=== PATIENT | female | born 1955 | race Caucasian/White ===

== ENCOUNTER 2024-12-06 22:37 | Emergency (ER) | payer MEDICARE, SELFPAY ==
[2024-12-06 22:38] VITALS: BP 205/85; PULSE 83; RESP 18; TEMP 36.9; O2SAT 100; BMI 42.0
--- NOTE | 2024-12-06 23:00 | ED.VIS.LOWEX ---
HPI History of Present Illness HPI Narrative: Patient presents with left knee pain that became worse today. Patient states she has a history of chronic knee pain. Patient states it normally gets better with ibuprofen. Patient states she has been taking ibuprofen tonight with no improvement. Patient denies any trauma or injury. Patient describes her pain as stabbing. Patient denies any paresthesias or weakness. Patient states her pain is worse with any ambulation or movement. Chief Complaint: Lower Extremity Injury Informant: patient Onset/Context/Timing Onset: Today Context: Gradual Onset Timing: Continuous Quality of Pain: Stabbing Location: Left knee Worsened by: Ambulation, movement Relieved by: Nothing Associated Symptoms Associated Symptoms: Negative for Parasthesia, Weakness or Loss of Funtion PFSH PFSH Medical History no medical history no medical history Home Medications ?Medication ?Instructions ?Recorded ?Last Taken ?Type etodolac 300 mg capsule 300 mg PO BID #60 caps 11/30/19 Unknown Rx hydrocodone-acetaminophen 5-325mg 1 tab PO Q6H PRN PRN Pain 3 days 12/07/24 Unknown Rx 5mg-325mg #10 TABLETS Allergy/AdvReac Type Severity Reaction Status Date / Time prednisone Allergy Intermediate Itching Verified 12/06/24 22:40 latex Allergy Unknown Verified 12/06/24 22:40 Penicillins Allergy Unknown Verified 12/06/24 22:40 Sulfa (Sulfonamide Allergy Unknown Verified 12/06/24 22:40 Antibiotics) terfenadine (From Seldane) Allergy Unknown Verified 12/06/24 22:40 diphenhydramine (From AdvReac Intermediate Swelling Verified 12/06/24 22:40 Benadryl) tetanus toxoid, adsorbed AdvReac redness Verified 12/06/24 22:41 Family History no significant family his Surgical History (Updated 12/06/24 @ 23:[address] Gabe Chamorro DO) Hx of section Surgical History no surgical history Social History Smoking Status: Never smoker ROS ROS ED Constitutional Constitutional ED: Denies chills or fever(s) Eyes Eyes: Denies blurry vision or change in vision ENT ENT ED: Denies rhinorrhea or sore throat Cardiovascular Cardiovascular: Denies chest pain or palpitations Respiratory/Chest Respiratory/Chest: Denies cough or dyspnea Gastrointestinal Gastrointestinal: Reports nausea; Denies vomiting Genitourinary Genitourinary ED: Denies dysuria or hematuria Musculoskeletal Musculoskeletal: Denies back pain or neck pain Integumentary Denies abscess or rash Neurologic Neurologic: Denies headache(s) or weakness Allergic/Immunologic Allergic/Immunologic ED: Denies mouth swelling or urticaria EXAM Physical Exam Const Vital Signs: 12/06/24 22:38 Temperature 98.4 F Temperature Source Oral Pulse Rate 83 Respiratory Rate 18 Blood Pressure 205/85 H Blood Pressure Mean 125 Pulse Ox 100 Oxygen Delivery Method Room Air Positive well nourished and well developed Constitutional Narrative: BMI is 42.0 General Appearance ED: well developed and NAD HEENT Reports moist mucous membranes normocephalic and atraumatic Neck full ROM and supple Extremity Extremity Narrative: There is tenderness and edema over the medial aspect of the left knee. There is no obvious deformity. There is no ecchymosis. Range of motion is limited in all motions of the left knee secondary to pain. Strength is 5/5 bilaterally in the lower extremities. Extensor mechanism is intact. Sensation is intact to light touch in the lower extremities bilaterally. Pedal pulses are equal bilateral. Neuro oriented x3, CN's II-XII intact bilaterally, moves all extremities and no sensory deficits noted Sensorium / Orientation: alert Motor Exam: strength 5/5 throughout Psych mental status grossly normal MDM MDM MDM Narrative Medical decision making narrative: Differential diagnosis includes occult fracture, sprain, contusion, and degenerative arthritis. X-rays of the left knee will be obtained to assess for occult fracture and degenerative arthritis. Radiography Diagnostic Testing: Clinical Impression(s) from Imaging Studies Knee X-Ray 12/06/24 23:10 IMPRESSION: No evidence of acute fracture. Severe osteoarthrosis. Reading Location: [place] [id number] X-rays of the left knee were obtained. There are 4 views. On my independent interpretation, there is no acute fracture. There there are degenerative changes noted. Radiologist also interpreted the x-rays and agrees. Treatment and Re-Evaluation Narrative: Patient was given a dose of [place] here. Patient was feeling better on reevaluation. Patient was given a prescription for a short course of [place]. Patient was instructed to ice and elevate the left knee. Patient was instructed to follow-up with her primary care physician in 5 to 7 days. Patient was instructed to return if worse in any way. Patient understood and was agreeable with the plan. All questions were answered. Discharge Plan Triage Chief Complaint: Lower Extremity Injury ED Provider: Gabe Chamorro Dx/Rx/DC Orders Clinical Impression: Acute pain of left knee, Elevated blood pressure reading Instructions: ED Arthralgia, ED Chronic Pain Prescriptions: New hydrocodone-acetaminophen 5-325 mg tablet 1 tab PO Q6H PRN PRN (Reason: Pain) 3 Days Qty: 10 0RF No Action etodolac 300 mg capsule 300 mg PO BID Qty: 60 0RF Rx Instructions: Do not take with other NSAIDs Primary Care Provider: Rylee Guallpa,Out of Referrals: Rylee Guallpa,Out of [Primary Care Provider] - 5-7 Days Print Language: Mosotho Disposition Disposition: Home, Self Care
--- NOTE | 2024-12-06 23:10 | RAD_ITS ---
PROCEDURE: KNEE 4 OR MORE VIEWS 12/06/2024 REASON FOR EXAM: INJURY/PAIN TECHNIQUE: 4 view(s) of the left knee COMPARISON: None. FINDINGS: Bones: No evidence of acute fracture or dislocation. Joints: Asymmetric joint space narrowing most pronounced in the medial compartment. Effusion: No effusion. Soft tissues: Soft tissues are unremarkable. Other: None. RAD/Knee 4 or More Views IMPRESSION: No evidence of acute fracture. Severe osteoarthrosis. Reading Location: [place] [id number]
[2024-12-06] MEDS: HYDROcodone Bitartrate/Apap 5/325 Tablet PO (23:26)
[2024-12-07 00:24] VITALS: BP 205/85; PULSE 83; RESP 18; TEMP 36.9; O2SAT 100
== END 2024-12-07 00:27 | disposition home or self-care (01) ==
PROVIDERS: Emergency Provider Emergency Medicine; Visit Provider Emergency Medicine
DX: M25.562 Pain in left knee (principal); G89.29 Other chronic pain; R03.0 Elevated blood-pressure reading, without diagnosis of hypertension; R11.0 Nausea
CPT/HCPCS: 73564; 99282

== ENCOUNTER → 2025-06-09 | Outpatient (CLI) | payer MEDICARE, SELFPAY ==
--- OUTSIDE RECORDS SUMMARY | 2025-06-09 15:18 | XMS RPT_ITS | CCD ---
Author Organization [facility] Care Team Providers [employer] Name Role Phone Unavailable Primary Care Provider UnavailHERIBERTO Oreilly Attending Unavailable SALEEM, HALLIE Attending Unavailable KABA, HERIBERTO Attending Unavailable VINICIUS MURRY Attending Unavailable VINICIUS MURRY Referring Unavailable KABA, HERIBERTO Attending Unavailable Unavailable Primary Care Provider UnavailSAAD Oates Attending Unavailable SAAD FUENTES Referring Unavailable SAAD FUENTES Attending Unavailable LIONEL RAY Referring Unavailable [facility] Doctor, Out of Primary Care Provider Dr. Gabe Bajwa DO Emergency Provider Gabe Chamorro Attending Unavailable [facility] Doctor, Out of Primary Care Unavailable Robb Elizondo MD Unavailable [phone] NONE, NONE Unavailable Unavailable Allergies Allergy Classification Reported Allergen(s) Allergy Type Date of Onset Reaction(s) Facility (14 sources) diphenhydrAMINE Drug Allergy 11-30-19 [facility] (13 sources) Latex Allergy to substance 03-07-20 15 [facility] (14 sources) Penicillins Drug Allergy 03-07-20 15 [facility] (12 sources) Prednisone Allergy to substance 11-30-19 [facility] (14 sources) Sulfonamides (Antibiotic) Drug Intolerance 11-11-19 06 [facility] (12 sources) Terfenadine Allergy to substance 03-07-20 15 [facility] (2 sources) fexofenadine / Pseudoephedrine Drug Allergy 02-24-20 [facility] (2 sources) polyethylene glycol 300 Drug Allergy 02-24-20 [facility] (2 sources) prednisoLONE Drug Allergy 02-24-20 [facility] (2 sources) Tetanus vaccine Propensity to adverse reactions to drug 02-24-20 [facility] (2 sources) Wound Dressing Adhesive Propensity to adverse reactions to drug 02-24-20 [facility] (1 source) diphenhydrAMINE Drug Allergy 12-07-19 Swelling [facility] Comment on above: visual distortion (1 source) Latex Allergy to substance 12-07-19 Unknown [facility] (1 source) Penicillins Allergy to substance 12-07-19 Unknown [facility] (1 source) predniSONE Drug Allergy 12-07-19 Itching [facility] Comment on above: dizziness, itching (1 source) Sulfonamides (Antibiotic) Allergy to substance 12-07-19 Unknown [facility] (1 source) Terfenadine Drug Allergy 12-07-19 Unknown [facility] (1 source) tetanus toxoid vaccine, inactivated Drug Allergy 12-07-19 redness [facility] (1 source) diphenhydrAMINE Drug Allergy 12-07-19 [facility] (1 source) Latex Drug allergy (disorder) 12-07-19 [facility] (1 source) Penicillins Drug allergy (disorder) 12-07-19 [facility] (1 source) predniSONE Drug Allergy 12-07-19 [facility] (1 source) Sulfonamides (Antibiotic) Drug allergy (disorder) 12-07-19 [facility] (1 source) Terfenadine Drug Allergy 12-07-19 [facility] (1 source) tetanus toxoid, adsorbed Drug allergy (disorder) 12-07-19 [facility] (1 source) Bee/Wasp/Ant venom Allergy to substance (disorder) 05-25-20 [facility] (1 source) diphenhydrAMINE Drug Allergy 05-25-20 Hallucinations [facility] (1 source) Penicillin V Drug Allergy 05-25-20 [facility] (1 source) sulfADIAZINE Drug Allergy 05-25-20 [facility] (1 source) tetanus toxoid vaccine, inactivated Drug Allergy 05-25-20 [facility] (1 source) SYNVISC-ONE Food allergy (disorder) 05-25-20 [facility] (1 source) STEROIDS AND PREDNISONE Food allergy (disorder) 05-25-20 [facility] Medications Current Medications Medication Drug Class(es) Dates Sig (Normalized) Sig (Original) acetaminophen 325 mg / HYDROcodone bitartrate 5 mg oral tablet (3 sources) Opioid Agonist Start: 12-07-2024 take 1 tablet by mouth every six hours as needed for pain Hydrocodone-Aceta minophen 5-325 mg tablet Active 1 {tbl} PO EVERY 6 HOURS NEEDED as needed for Pain 10 3 December 07, 2024 Start: 03-06-2015 End: 11-30-2019 Hydrocodone-Acetaminophen 1 TABLET tablet Discontinued 1 - 2 {tbl} PO EVERY 4 HOURS NEEDED as needed for Pain March 06, 2015 12:00am November 30, 2019 8:08am take 1 tablet by jeff th every six hours as needed for pain hydrocodone 5 mg-acetaminophen 325 mg tablet TAKE 1 TABLET BY MOUTH EVERY 6 HOURS NEEDED FOR PAIN FOR 3 DAYS active Hannah Mccoy [facility] diclofenac sodium 0.01 mg/mg topical gel (5 sources) Nonsteroidal Anti-inflammatory Drug Start: 08-31-2023 Diclofenac Sodium (Voltaren) 1 % gel Indications: Primary osteoarthritis of left knee Apply 2 g topically in the morning and 2 g at noon and 2 g in the evening and 2 g before bedtime. 100 g 2 08/31/2023 Active etodolac 300 mg oral capsule (1 source) Nonsteroidal Anti-inflammatory Drug Start: 11-30-2019 take 1 capsule by mouth twice daily Etodolac 300 mg capsule Active 300 mg PO TWICE A DAY 60 November 30, 2019 12:00am Do not take with other NSAIDs ibuprofen 200 mg oral tablet (3 sources) Nonsteroidal Anti-inflammatory Drug take 4 tablets by mouth three times daily as needed for pain ibuprofen 200 mg tablet 4 tablet by mouth three times a day as needed for pain active Hannah Mccoy [employer] [facility] take 1 tablet by jeff th every six hours as needed Ibuprofen 400 MG tablet Take 1 tablet by mouth every 6 hours as needed for Mild Pain. Active Completed/Discontinued Medications Medication Drug Class(es) Dates Sig (Normalized) Sig (Original) acyclovir 800 mg oral tablet (1 source) Herpesvirus Nucleoside Analog DNA Polymerase Inhibitor, Herpes Simplex Virus Nucleoside Analog DNA Polymerase Inhibitor, Herpes Zoster Virus Nucleoside Analog DNA Polymerase Inhibitor Start: 03-07-2015 End: 11-30-2019 take 1 tablet by mouth five times daily Acyclovir 800 MG tablet Discontinued 800 mg PO 5 TIMES DAILY March 07, 2015 12:00am November 30, 2019 8:08am 6 ml hylan g-f 20 8 mg/ml prefilled syringe (2 sources) Start: 08-26-2023 End: 08-26-2023 hylan (Synvisc-One) injection 48 mg naproxen 500 mg oral tablet (1 source) Nonsteroidal Anti-inflammatory Drug Start: 03-06-2015 End: 11-30-2019 take 1 tablet by mouth twice daily Naproxen 500 MG tablet Discontinued 500 mg PO TWICE A DAY March 06, 2015 12:00am November 30, 2019 8:08am Problems Active Problems Problem Classification Problem Date Documented Date Episodic/Chronic Menstrual disorders (5 sources) Excessive and frequent menstruation; Translations: [Excessive and frequent menstruation with regular cycle] Onset: 11-10-2005 08-31-2023 Chronic Osteoarthritis (13 sources) Osteoarthritis of left knee joint; Translations: [Unilateral primary osteoarthritis, left knee] Onset: 08-19-2023 08-19-2023 Chronic Other circulatory disease (1 source) Elevated blood pressure; Translations: [Elevated blood-pressure reading, without diagnosis of hypertension] 12-07-2024 Episodic Other female genital disorders (5 sources) Complex endometrial hyperplasia without atypia; Translations: [Benign endometrial hyperplasia] Onset: 11-10-2005 08-31-2023 Chronic Other non-traumatic joint disorders (12 sources) Pain in left knee; Translations: [Pain in joint, lower leg] Onset: 08-19-2023 05-19-2023 Episodic Past or Other Problems Problem Classification Problem Date Documented Da te Episodic/Chronic Other female genital disorders (5 sources) Hypertrophy of uterus; Translations: [Hypertrophy of uterus] Onset: 11-10-2005 08-31-2023 Episodic Results Test Name Value Interpretation Reference Range Facil ity Relevant diagnostic tests/la boratory data Narrativeon 05-25-2025 Fall risk assessment no [employer] Work Phone: MEDS REVIEW Documentation of current medications (procedure) [employer] Work Phone: MEDS REVIEWD Medications reviewed with changes [employer] Work Phone: Emergency Department Summary on 12-06-2024 Emergency Department Summary [facility] Medical Records Department [address] [place] [address] Emergency Department Summary 12/06/24 MR#: [id number] Acct: [id number] Name: BUSHRA SCOTT Rep #: [id number] : 1955 68 From: Gabe Chamorro DO PCP: OUT OF TOWN DOCTOR Status:DEP ER Location: ED HPI History of Present Illness HPI Narrative: Patient presents with left knee pain that became worse today. Patient states she has a history of chronic knee pain. Patient states it normally gets better with ibuprofen. Patient states she has been taking ibuprofen tonight with no improvement. Patient denies any trauma or injury. Patient describes her pain as stabbing. Patient denies any paresthesias or weakness. Patient states her pain is worse with any ambulation or movement. Chief Complaint: Lower Extremity Injury Informant: patient Onset/Context/Timing Onset: Today Context: Gradual Onset Timing: Continuous Quality of Pain: Stabbing Location: Left knee Worsened by: Ambulation, movement Relieved by: Nothing Associated Symptoms Associated Symptoms: Negative for Parasthesia, Weakness or Loss of Funtion PFSH PFSH Medical History no medical history no medical history Home Medications ???Medication ???Instructions ???Recorded ???Last Taken ???Type etodolac 300 mg capsule 300 mg PO BID #60 caps 11/30/19 Un known Rx hydrocodone-acetaminop hen 5-325mg 1 tab PO Q6H PRN PRN Pain 3 days 12/07/24 Unknown Rx 5mg-325mg #10 TABLETS Allergy/AdvReac Type Severity Reaction Status Date / Time prednisone Allergy Intermediate Itching Verified 12/06/24 22:40 latex Allergy Unknown Verified 12/06/24 22:40 Penicillins Allergy Unknown Verified 12/06/24 22:40 Sulfa (Sulfonamide Allergy Unknown Verified 12/06/24 22:40 Antibiotics) terfenadine (From Seldane) Allergy Unknown Verified 12/06/24 22:40 diphenhydramine (From AdvReac Intermediate Swelling Verified 12/06/24 22:40 Benadryl) tetanus toxoid, adsorbed AdvReac redness Verified 12/06/24 22:41 Family History no significant family his Surgical History (Updated 12/06/24 @ 23:[address] Gabe Chamorro DO) Hx of section Surgical History no surgical history Social History Smoking Status: Never smoker ROS ROS ED Constitutional Constitutional ED: Denies chills or fever(s) Eyes Eyes: Denies blurry vision or change in vision ENT ENT ED: Denies rhinorrhea or sore throat Cardiovascular Cardiovascular: Denies chest pain or palpitations Respiratory/Chest Respiratory/Chest: Denies cough or dyspnea Gastrointestinal Gastrointestinal: Reports nausea; Denies vomiting Genitourinary Genitourinary ED: Denies dysuria or hematuria Musculoskeletal Musculoskeletal: Denies back pain or neck pain Integumentary Denies abscess or rash Neurologic Neurologic: Denies headache(s) or weakness Allergic/Immunologic Allergic/Immunologic ED: Denies mouth swelling or urticaria EXAM Physical Exam Const Vital Signs: 12/06/24 22:38 Temperature 98.4 F Temperature Source Oral Pulse Rate 83 Respiratory Rate 18 Blood Pressure 205/85 H Blood Pressure Mean 125 Pulse Ox 100 Oxygen Delivery Method Room Air Positive well nourished and well developed Constitutional Narrative: BMI is 42.0 General Appearance ED: well developed and NAD HEENT Reports moist mucous membranes normocephalic and atraumatic Neck full ROM and supple Extremity Extremity Narrative: There is tenderness and edema over the medial aspect of the left knee. There is no obvious deformity. There is no ecchymosis. Range of motion is limited in all motions of the left knee secondary to pain. Strength is 5/5 bilaterally in the lower extremities. Extensor mechanism is intact. Sensation is intact to light touch in the lower extremities bilaterally. Pedal pulses are equal bilateral. Neuro oriented x3, CN's II-XII intact bilaterally, moves all extremities and no sensory deficits noted Sensorium / Orientation: alert Motor Exam: strength 5/5 throughout Psych mental status grossly normal MDM MDM MDM Narrative Medical decision making narrative: Differential diagnosis includes occult fracture, sprain, contusion, and degenerative arthritis. X- rays of the left knee will be obtained to assess for occult fracture and degenerative arthritis. Radiography Diagnostic Testing: Clinical Impression(s) from Imaging Studies Knee X-Ray 12/06/24 23:10 IMPRESSION: No evidence of acute fracture. Severe osteoarthrosis. Reading Location: [place] [address] X-rays of the left knee were obtained. There are 4 views. On my independent interpretation, there is no acute fracture. There t (more content not included)... Normal [facility] Knee 4 or More Viewson 12-06 Knee 4 or More Views [facility] Imaging Services [address] [place] [address] Knee 4 or More Views MR#: [id number] Acct: [id number] Name: BUSHRA SCOTT Rep #: [id number] : 1955 F 68 From: Marquise Hanson MD PCP: OUT OF TOWN DOCTOR Status: REG ER Study: Knee 4 or More Views Date of Exam: 12/06/24 Exam# [id number] Ordering Dr: Gabe Chamorro DO PROCEDURE: KNEE 4 OR MORE VIEWS 12/06/2024 REASON FOR EXAM: INJURY/PAIN TECHNIQUE: 4 view(s) of the left knee COMPARISON: None. FINDINGS: Bones: No evidence of acute fracture or dislocation. Joints: Asymmetric joint space narrowing most pronounced in the medial compartment. Effusion: No effusion. Soft tissues: Soft tissues are unremarkable. Other: None. RAD/Knee 4 or More Views IMPRESSION: No evidence of acute fracture. Severe osteoarthrosis. Reading Location: [id number] CC: Dr. Gabe Chamorro DO Field Health Officer: Signed [facility] 3601-27-2024 36 MITCHELL uploaded to [employer] and was sent to [facility]. They called in and asked if we can just fax since she has not gotten in mail. [phone] Faxed OV notes. [facility] 3612-18-2023 36 I mailed out the MITCHELL to the patient. [facility] 3612-17-2023 36 Can you help with this? [facility] 36 Pearl called stati ng the patient told them she's been calling and leaving voicemails for the office about getting her records. Said someone told her there was a fee. [facility] in [place]. Called patient to advise we need a signed release. She asked we mail it to her. Can you mail a MITCHELL form to the patient's home? Normal [facility] 36on 09-25-2023 36 I called the patient and listened to her concerns. She stated that she continues to have swelling and pain within the knee and she also indicated that she has a mass in the inside part of her knee since she received the injection. She reiterated that she is allergic to all kinds of things and that no one looked at her allergy list. She uses a wrap to help minimize the swelling, but she states that the swelling comes back after she takes the wrap off. She indicated that her knee is twice the size of the other knee. She expressed that she is at a loss as far as what to do now. I offered her an appointment with one of our [facility] providers (Dr. Rogers) t osee if there are any other non-operative treatment options for her knee since she isnt a surgical candidate. She advised that she will give it another month and if it doesn't get any better than she may call for an appointment. Normal [facility] 36on 08-31-2023 36 Noted Normal [facility] 36 Name of caller: Bushra Contact phone number: [phone] Relationship to Patient: Self Provider: [place] Practice: Ortho Chief Complaint/Reason for Call: Pt called in stating she will not be using the Voltaren Gel Dr Kaba recommended. Pt states there are way too many side effects and pt will not touch it. Pt with all that is listed that could happen she is scared. FYI Best time of day caller can be reached: Any Patient advised that office/PCP has 24-48 business hours to return their call: N/A Normal [facility] Office Visiton 08-31-2023 Follow-up visit [id number] Louise Scott 1955 F Date Provider Department Center 08/31/2023 [id number], [facility] OR None No family history on file Level of Service:34943 CT OFFICE/OUTPATIENT ESTABLISHED LOW MDM 20 MIN Reason for Visit and Comments: Follow-up [948162] - Left knee pain Normal [facility] PATINSon 08-31-2023 PATINS HOW TO USE VOLTAREN GEL: Voltaren dosing card Read the label and use the enclosed dosing card. Do not use on more than two body areas at the same time. Dosage Using the dosing card, apply the following amounts: Small joint areas (hand, wrist, elbow, ankle): 2.25 inches Larger joint areas (shoulder, knee, foot): 4.5 inches Voltaren being applied to the knee instuctions: Rub gently into affected area. It is intended to be used 4 times a day everyday for up to 21 days. With 6-eqkkq-r-day use, you may start to feel relief within a few days. DRUG INFORMATION: Diclofenac topical Pronunciation: dye KLOE fen ak JOSH ik al Brand: DST Plus Rafael, Pennsaid, Solaraze, Voltaren Topical What is the most important information I should know about diclofenac topical? Diclofenac can increase your risk of fatal heart attack or stroke, especially if you use it intermediate or take high doses, or if you have heart disease. Do not use this medicine just before or after heart bypass surgery (coronary artery bypass graft, or CABG). Diclofenac may also cause stomach or intestinal bleeding, which can be fatal. These conditions can occur without warning while you are using diclofenac, especially in older adults. What is diclofenac topical? Diclofenac is a nonsteroidal anti-inflammatory drug (NSAID). Diclofenac topical (for the skin) is used to treat joint pain caused by osteoarthritis. Pennsaid is for use on the knees. Voltaren Topical is for use on the hands, wrists, elbows, knees, ankles, or feet. This medicine may not be effective in treating arthritis pain elsewhere in the body. Solaraze is used to treat warty overgrowths of skin (actinic keratoses) on sun-exposed areas of the body. Diclofenac topical may also be used for purposes not listed in this medication guide. What should I discuss with my healthcare provider before using diclofenac topical? Diclofenac can increase your risk of fatal heart attack or stroke, especially if you use it intermediate or take high doses, or if you have heart disease. Even people without heart disease or risk factors could have a stroke or heart attack while taking this medicine. Do not use this medicine just before or after heart bypass surgery (coronary artery bypass graft, or CABG). Diclofenac may also cause stomach or intestinal bleeding, which can be fatal. These conditions can occur without warning while you are using diclofenac, especially in older adults. You should not use this medicine if you are allergic to diclofenac (Voltaren, Cataflam, Flector, and others), or if you have ever had an asthma attack or severe allergic reaction after taking aspirin or an NSAID. Diclofenac topical is not approved for use by anyone younger than 18 years old. Tell your doctor if you have ever had: heart disease, high blood pressure, high cholesterol, diabetes, or if you smoke; a heart attack, stroke, or blood clot; stomach ulcers, bleeding in your stomach or intestines; asthma; liver or kidney disease; fluid retention. Diclofenac can affect ovulation and it may be harder to get while you are using this medicine. However, using diclofenac topical during the last 3 months of may harm the unborn baby. Tell your doctor if you are or plan to become . It may not be safe to breast-feed while using this medicine. Ask your doctor about any risk. How should I use diclofenac topical? Follow all directions on your prescription label and read all medication guides. Use the lowest dose that is effective in treating your condition. Do not take by mouth. Topical medicine is for use only on the skin. Rinse with water if this medicine gets in your eyes or mouth. Read and carefully follow any Instructions for Use provided with your medicine. Ask your doctor or pharmacist if you do not understand these instructions. Do not apply diclofenac topical to an open skin wound, or on areas of infection, rash, burn, or peeling skin. Store at room temperature away from moisture and heat. Do not freeze. Store Pennsaid in an upright position. What happens if I miss a dose? Apply the medicine as soon as you can, but skip the missed dose if it is almost time for your next dose. Do not apply two doses at one time. What happens if I overdose? Seek emergency medical attention or call the Poison Help line at . What should I avoid while using diclofenac topical? Ask a doctor or pharmacist before using other medicines for pain, fever, swelling, or cold/flu symptoms. They may contain ingredients similar to diclofenac (such as aspirin, ibuprofen, ketoprofen, or naproxen). Avoid drinking alcohol. It may increase your risk of stomach bleeding. Avoid exposing treated skin to heat, sunlight, or tanning beds. Heat can increase the amount of diclofenac you absorb through your skin. Avoid getting this medicine in your eyes. If contact does occur, (more content not included)... Normal [facility] Progress Noteon 08-31-2023 Progress Note [facility] [address] [place] [address] Dept: [phone] Dept 08/31/2023 Chief Complaint Patient presents with Follow-up Left knee pain Subjective: Bushra is a 67 y.o. female who presents for repeat evaluation of the left knee. At the last visit we initiated non-operative treatment consisting of... ~ Synvisc One injection on 08/26/23 ~ Crutches ~ NSAIDs ~ Saw Hallie on 08/28/23 - labs ordered - patient states she has had no improvement over the last 3 days The patient reports the treatment has not provided significant prolonged relief. Review of Systems Constitutional: Negative for chills and fever. Respiratory: Negative for cough and shortness of breath. Cardiovascular: Negative for claudication and leg swelling. Musculoskeletal: Positive for joint line pain. Negative for falls. Skin: Negative for itching and rash. Neurological: Negative for sensory change and focal weakness She also added at the end of the visit that she did get bite by a racoon on her right leg about 3 weeks ago. That wound appears completely healed and so concerning symptoms present at this time. She is refusing to get the rabies vaccine because she is scared of an reaction. No past medical history on file. No past surgical history on file. Social History Socioeconomic History Marital status: Single Spouse name: Not on file Number of children: Not on file Years of education: Not on file Highest education level: Not on file Occupational History Not on file Tobacco Use Smoking status: Never Smokeless tobacco: Never Substance and Sexual Activity Alcohol use: Not on file Drug use: Not on file Sexual activity: Not on file Other Topics Concern Not on file Social History Narrative Not on file Social Determinants of Health Financial Resource Strain: Not on file Food Insecurity: Not on file Transportation Needs: Not on file Physical Activity: Not on file Stress: Not on file Social Connections: Not on file Intimate Partner Violence: Not on file Housing Stability: Not on file No family history on file. Allergies Allergen Reactions Diphenhydramine Other reaction(s): Swelling Prednisone Other reaction(s): Itching Latex Other reaction(s): Unknown Penicillins Other reaction(s): Unknown Sulfa Antibiotics Terfenadine Other reaction(s): Unknown Objective: Ht 5' 1 (1.549 m) Wt 210 lb (95.3 kg) BMI 39.68 kg/m? Pt is a WD/WN female in no acute distress. She appears her stated age. Mood and affect are normal. She is A&O x 3. Gait: antalgic with crutches. LEFT KNEE: Inspection shows skin is warm, dry and intact. There are no obvious scars or previous incisions.. Alignment is mild varus. ROM shows extension is 15, flexion 90. The knee is stable to varus/valgus stress (<6 degrees) and is correctable. Additional findings include medial joint line tenderness, no effusion and no erythema. Diffuse knee swelling noted. Anterior, posterior drawer negative. +PF/DF/EHL. SILT distally. DP/PT palpable. Straight leg raise negative for inciting radicular symptoms. Bilateral hip range of motion is not painful. Lab Results: RELEVANT LABS: Component Ref Range & Units 3 d ago SED RATE BY MODIFIED WESTERGREN < OR = 30 mm/h 6 Radiology Findings: Previous images in our system reviewed again today. XRAYS: Indication: Left knee pain. Exam Ordered: Radiographs of the knee include a standing anteroposterior view, a standing posteroanterior view, a lateral view in flexion, and a sunrise view. Details of Examination: Exam shows evidence of significant joint space narrowing (bone on bone) particularly in the medial compartment, significant peripheral osteophyte formation, and subchondral sclerosis; all consistent with end-stage degenerative arthritis of the knee. No other significant findings are noted. Impression: Degenerative Arthritis, left knee Assessment 1. Primary osteoarthritis of left knee Plan The above findings were discussed with patient length. We discussed the options of conservative versus possible surgical management of their knee. At this point considering the patient's level of activity, pain, and radiographic findings, I recommended continued conservative management. This treatment will consist of... ~ Activity modification ~ NSAID's (OTC preferred) - The risks and benefits of NSAID medications were discussed. NSAID's can have potential renal/cardiac/gastric side effects. ~ Topical Voltaren ~ ESR normal, low concern for infection. The risks, benefits, and alternatives to all of the treatment options were thoroughly explained. Patient will call us with any questions or concerns regarding this plan or if any significant issues arise. Follow-up prn, discussed process of surgery today. She wants to hold off if possible. We discussed possible [place] (more content not included)... Normal [facility] 36on 08-28-2023 36 Hallie, I had a pseudosepsis reaction to Synvisc a couple weeks ago, I just gave her a Dosepack and she got better. For her she is allergic to steroids so we don't have many options for her... Thank you for seeing her though much appreciated. Normal [facility] 36 FYI. They put her on the schedule to see Hallie this morning. [facility] 36 Nurse Triage: Situation: Patient called orthopedic nurse triage line and spoke with Irina Archer RN regarding increased swelling in left knee s/p gel injection on 08/26/23, also inability to walk more than 3 steps without crutches. States she has multiple allergies. Background: Bushra is approximately 2 day(s) s/p left knee gel injection with Dr. Kaba Assessment: Bushra complains of new symptoms to include increased swelling to injection site, inside portion of left knee, behind knee and partially down leg Currently pain is present, but that it is a different pain than before injection Patient states she is taking ibuprofen, ice and elevating. Bushra denies numbness and tingling States when she got injection, she was unable to walk right after and was taken to car in a w/c Capillary refill: brisk Erythema: No Swelling: Yes Effusion: No Calf pain or tenderness: No Recommendation: Telephone encounter sent to clinical staff provider to advise Patient cannot send in photo[place] Advised to have patient come into office to be seen by provider. Made appt with Hallie Monge at 11am per clinical staff [facility] 36 Questions about gel injection from 08/26/2023 visit for LT knee. She was wheeled out from office due to unable to walk after injection. Using crutches currently due to walking difficulty. Swelling under and inside of LT knee. Mars ball area where injection was placed on knee is present. Please return call to address if this is normal after gel injection, and what she can do for relief. Has tried icing. Normal [facility] Office Visiton 08-28-2023 Follow-up visit [id number] Louise Scott 1955 F Date Provider Department Center 08/28/2023 [id number], [facility] None No family history on file Level of Service:33414 CT OFFICE/OUTPATIENT ESTABLISHED LOW MDM 20 MIN Reason for Visit and Comments: Follow-up [[id number]] - Gel injection reaction LV: 08/19/23 Normal [facility] Progress Noteon 08-28-2023 Progress Note [facility] [address] [place] [address] [address] [facility] [address] Dept: [phone] Dept 08/28/2023 Chief Complaint Patient presents with Follow-up Gel injection reaction LV: 08/19/23 Subjective: Bushra Scott Patient presents today left knee pain and swelling following a gel injection on Thursday. The knee today is feeling worse. The patient reports increased swelling in medial side of left knee that continues down into her naranjo. The patient does report multiple allergies and is worried that she had a reaction to the injections. Non-operative treatment to date has consisted of: NSAIDS: Yes Tylenol: Yes Technical Editor Brace: No Cortisone injections: Yes Viscosupplementation: Yes Assistive Devices: crutches Therapy/HEP: No Narcotics: No Review of Systems Constitutional: Negative for activity change. HENT: Negative for congestion. Cardiovascular: Negative for leg swelling. Musculoskeletal: Positive for arthralgias, gait problem and joint swelling. Skin: Negative for wound. Neurological: Negative for weakness. No past medical history on file. No past surgical history on file. Social History Socioeconomic History Marital status: Single Spouse name: Not on file Number of children: Not on file Years of education: Not on file Highest education level: Not on file Occupational History Not on file Tobacco Use Smoking status: Never Smokeless tobacco: Never Substance and Sexual Activity Alcohol use: Not on file Drug use: Not on file Sexual activity: Not on file Other Topics Concern Not on file Social History Narrative Not on file Social Determinants of Health Financial Resource Strain: Not on file Food Insecurity: Not on file Transportation Needs: Not on file Physical Activity: Not on file Stress: Not on file Social Connections: Not on file Intimate Partner Violence: Not on file Housing Stability: Not on file No family history on file. Allergies Allergen Reactions Diphenhydramine Other reaction(s): Swelling Prednisone Other reaction(s): Itching Latex Other reaction(s): Unknown Penicillins Other reaction(s): Unknown Sulfa Antibiotics Terfenadine Other reaction(s): Unknown Objective: Ht 5' 1 (1.549 m) Wt 210 lb (95.3 kg) BMI 39.68 kg/m? Pt is a WD/WN female in no acute distress but complaining of severe pain with activity. She appears her stated age. Mood and affect are normal. She is A&O x 3. Gait: antalgic. LEFT KNEE: Inspection shows skin is warm, dry and intact. There are no obvious scars or previous incisions. Alignment is neutral. There is an extensive amount of medial swelling extending into the thigh and down the naranjo. No redness or warmth present. ROM shows extension is 0, flexion 120. The knee is stable to varus/valgus stress (<6 degrees). +PF/DF/EHL. SILT distally. DP/PT palpable. Straight leg raise negative for inciting radicular symptoms. XRAYS: No new imaging since last visit Assessment 1. Acute pain of left knee 2. Primary osteoarthritis of left knee 3. Arthritis of left knee Bushra is here today complaining of left knee pain following a gel injection on Thursday. Her and her report that the pain started instantly during the injections and she left thinking it would get better. Soon after going home she start to get medial knee swelling along with the pain when up with activity. Zero pain is relaxing in the recliner. She denies any falls or injuries since the visit. Denies fever, chills, redness or warmth in the knee. After I reviewed with her that I feel she is having an inflammatory response to the injection she proceeded to tell me that she has several allergies that are not listed in her chart (example: after her tetanus shot her entire arm became huge and swollen and almost killed her). I discussed with her that it does not present like an infection but that I am going to get an ESR/CRP to rule out. Plan was to get her a medrol dose pac to help with the swelling but she also has a severe allergy to steroids and declined. She can only take Ibuprofen so I instructed her to continue that scheduled for the next 5 days, along with aggressive ice and elevation. I applied an mary wrap from toes to thigh to aid in the edema but instructed her to remove it a minium of 3 times a day to assess her leg. She can continue with WBAT and will follow up with Dr. Kaba on Thursday. We reviewed signs and symptoms of infection. The risks, benefits, and alternatives to all of the treatment options were thoroughly explained. Patient will call us with any questions or concerns regarding this plan or if any significant issues arise she is to report to the ED. This treatment will consist of... ~ Followup with Dr. Kaba on 08/31/23 *She also added at the end of the visit that she did get bite by a racoon on her right leg a (more content not included)... Normal [facility] Office Visiton 08-26-2023 Follow-up visit [id number] MiltonLouise stovall 1955 F Date Provider Department Center 08/26/2023 [id number], RYAN [facility]T [facility] None No family history on file Level of Service:22886 CT OFFICE/OUTPT VISIT,PROCEDURE ONLY Reason for Visit and Comments: Follow-up [[id number]] - Fu: Left knee synvisc one injection. Normal [facility] Progress Noteon 08-26-2023 Progress Note [facility] [address] [place] [address] Dept: [phone] Dept 08/26/2023 Chief Complaint Patient presents with Follow-up Fu: Left knee synvisc one injection. Subjective: Bushra is a 67 y.o. female who presents for repeat evaluation of the left knee. At the last visit we initiated non-operative treatment consisting of... ~ Activity modification ~ NSAID's (OTC preferred) - The risks and benefits of NSAID medications were discussed. NSAID's can have potential renal/cardiac/gastric side effects. ~ Tylenol ~ Physical therapy (home exercise program provided) ~ Submitting to insurance for gel injection. ~ Patient does not want surgery due [place] which she would like to continue. ~ Left knee brace, patient has OTC brace already Pt here today for Left Knee Synvisc one gel injection. Review of Systems Constitutional: Negative for activity change. HENT: Negative for congestion. Cardiovascular: Negative for leg swelling. Musculoskeletal: Positive for arthralgias, gait problem and joint swelling. Skin: Negative for wound. Neurological: Negative for weakness. History reviewed. No pertinent past medical history. History reviewed. No pertinent surgical history. Social History Socioeconomic History Marital status: Single Spouse name: Not on file Number of children: Not on file Years of education: Not on file Highest education level: Not on file Occupational History Not on file Tobacco Use Smoking status: Never Smokeless tobacco: Never Substance and Sexual Activity Alcohol use: Not on file Drug use: Not on file Sexual activity: Not on file Other Topics Concern Not on file Social History Narrative Not on file Social Determinants of Health Financial Resource Strain: Not on file Food Insecurity: Not on file Transportation Needs: Not on file Physical Activity: Not on file Stress: Not on file Social Connections: Not on file Intimate Partner Violence: Not on file Housing Stability: Not on file No family history on file. Allergies Allergen Reactions Diphenhydramine Other reaction(s): Swelling Prednisone Other reaction(s): Itching Latex Other reaction(s): Unknown Penicillins Other reaction(s): Unknown Sulfa Antibiotics Terfenadine Other reaction(s): Unknown Objective: Ht 5' 1 (1.549 m) Wt 210 lb (95.3 kg) BMI 39.68 kg/m? Pt is a WD/WN female in no acute distress. She appears her stated age. Mood and affect are normal. She is A&O x 3. Gait: antalgic. RIGHT KNEE: Inspection shows skin is warm, dry and intact. There are no obvious scars or previous incisions.. Alignment is neutral. ROM shows extension is 0, flexion 125. The knee is stable to varus/valgus stress (<6 degrees) and is not correctable. Additional findings include , no effusion, no erythema, and no tenderness. Anterior, posterior drawer negative. +PF/DF/EHL. SILT distally. DP/PT palpable. Straight leg raise negative for inciting radicular symptoms. LEFT KNEE: Inspection shows skin is warm, dry and intact. There are no obvious scars or previous incisions.. Alignment is significant varus. ROM shows extension is 0, flexion 120. The knee is stable to varus/valgus stress (<6 degrees) and is correctable. Additional findings include medial joint line tenderness, no effusion and no erythema. Anterior, posterior drawer negative. +PF/DF/EHL. SILT distally. DP/PT palpable. Straight leg raise negative for inciting radicular symptoms. Bilateral hip range of motion is not painful. Lab Results: RELEVANT LABS: NONE Radiology Findings: 04/08/23 images obtained by outside radiology department independently reviewed by myself today in office. XRAYS: Indication: Left knee pain. Exam Ordered: Radiographs of the knee include a standing anteroposterior view, a standing posteroanterior view, a lateral view in flexion, and a sunrise view. Details of Examination: Exam shows evidence of significant joint space narrowing (bone on bone) particularly in the medial compartment, significant peripheral osteophyte formation, and subchondral sclerosis; all consistent with end-stage degenerative arthritis of the knee. No other significant findings are noted. Impression: Degenerative Arthritis, left knee Assessment 1. Arthritis of left knee Plan The above findings were discussed with patient length. We discussed the options of conservative versus possible surgical management of their knee. At this point considering the patient's level of activity, pain, and radiographic findings, I recommended continued conservative management. This treatment will consist of... ~ Gel injection - Procedure(s) Note: After risks and benefits of visco/gel injection were reviewed with the patient, they elected to proceed. After a triple alcohol sterile preparation, a Synvisc one injection was given (more content not included)... Normal [facility] 36on 08-24-2023 36 I called and got the patient scheduled for the left knee Synvisc one injection . [facility] 36 Patient was seen in office 08/19/2023, patient said Dr. Kaba told her the gel injections would be in by Thursday of that week. She called to check status as she had not heard from anyone yet. Submitting to insurance for gel injection. [facility] Office Visiton 08-19-2023 Follow-up visit [id number] Louise Scott 1955 F Date Provider Department Center 08/19/2023 [id number], RYAN [facility] None No family history on file Level of Service:15475 CT OFFICE/OUTPATIENT NEW LOW MDM 30 MINUTES Reason for Visit and Comments: New Patient [542] - L knee pain Normal [facility] Progress Noteon 08-19-2023 Progress Note [facility] [address] [place] [address] Dept: [phone] Dept 08/19/2023 Chief Complaint Patient presents with New Patient L knee pain Subjective: Bushra is a 67 y.o. female who presents for evaluation of the left knee. Symptoms began gradually several years ago. She describes the symptoms as aching. The pain is medial. Symptoms improve with rest, ice, medication: Ibuprofen, Tylenol, biofreeze used and beneficial. The symptoms are exacerbated by stair climbing, walking on uneven ground . The knee has not given out or felt unstable. The patient can bend and straighten the knee fully and does not have mechanical symptoms (catching, locking). Able to walk 2-3 blocks and is able to use stairs. Overall, the patient feels as if this condition is moderately impacting their quality of life and ability to do activities of daily living. No associated radicular pain contributing nor any radiating hip pain. Previous Surgery: No Non-operative treatment to date has consisted of: NSAIDS: Yes Narcotics: No Therapy: None. Cortisone injections: No Viscosupplementation: No Assistive Devices: None Bracing: Yes Attempted Weight Loss: No Medications reviewed. Review of Systems Constitutional: Negative for activity change. HENT: Negative for congestion. Cardiovascular: Negative for leg swelling. Musculoskeletal: Positive for arthralgias, gait problem and joint swelling. Skin: Negative for wound. Neurological: Negative for weakness. History reviewed. No pertinent past medical history. History reviewed. No pertinent surgical history. Social History Socioeconomic History Marital status: Single Spouse name: Not on file Number of children: Not on file Years of education: Not on file Highest education level: Not on file Occupational History Not on file Tobacco Use Smoking status: Never Smokeless tobacco: Never Substance and Sexual Activity Alcohol use: Not on file Drug use: Not on file Sexual activity: Not on file Other Topics Concern Not on file Social History Narrative Not on file Social Determinants of Health Financial Resource Strain: Not on file Food Insecurity: Not on file Transportation Needs: Not on file Physical Activity: Not on file Stress: Not on file Social Connections: Not on file Intimate Partner Violence: Not on file Housing Stability: Not on file No family history on file. Allergies Allergen Reactions Diphenhydramine Other reaction(s): Swelling Prednisone Other reaction(s): Itching Latex Other reaction(s): Unknown Penicillins Other reaction(s): Unknown Sulfa Antibiotics Terfenadine Other reaction(s): Unknown Objective: Ht 5' 1 (1.549 m) Wt 210 lb (95.3 kg) BMI 39.68 kg/m? Pt is a WD/WN female in no acute distress. She appears her stated age. Mood and affect are normal. She is A&O x 3. Gait: antalgic. RIGHT KNEE: Inspection shows skin is warm, dry and intact. There are no obvious scars or previous incisions.. Alignment is neutral. ROM shows extension is 0, flexion 125. The knee is stable to varus/valgus stress (<6 degrees) and is not correctable. Additional findings include , no effusion, no erythema, and no tenderness. Anterior, posterior drawer negative. +PF/DF/EHL. SILT distally. DP/PT palpable. Straight leg raise negative for inciting radicular symptoms. LEFT KNEE: Inspection shows skin is warm, dry and intact. There are no obvious scars or previous incisions.. Alignment is significant varus. ROM shows extension is 0, flexion 120. The knee is stable to varus/valgus stress (<6 degrees) and is correctable. Additional findings include medial joint line tenderness, no effusion and no erythema. Anterior, posterior drawer negative. +PF/DF/EHL. SILT distally. DP/PT palpable. Straight leg raise negative for inciting radicular symptoms. Bilateral hip range of motion is not painful. Lab Results: RELEVANT LABS: NONE Radiology Findings: 04/08/23 images obtained by outside radiology department independently reviewed by myself today in office. XRAYS: Indication: Left knee pain. Exam Ordered: Radiographs of the knee include a standing anteroposterior view, a standing posteroanterior view, a lateral view in flexion, and a sunrise view. Details of Examination: Exam shows evidence of significant joint space narrowing (bone on bone) particularly in the medial compartment, significant peripheral osteophyte formation, and subchondral sclerosis; all consistent with end-stage degenerative arthritis of the knee. No other significant findings are noted. Impression: Degenerative Arthritis, left knee. Assessment 1. Primary osteoarthritis of left knee Plan The above findings were discussed with patient length. We discussed the options of conservative versus possible surgical management of their knee. At this point considering t (more content not included)... Normal [facility] Vital Signs Date Time Vital Sign Value Performing Clinician Facility 05-25-2025 14:10-0500 Body height 155 cm Robb Elizondo MD Work Phone: [facility] 05-25-2025 14:10-0500 Body height 154.94 cm Robb Elizondo MD Work Phone: [facility] 05-25-2025 14:10-0500 Body mass index (BMI) [Ratio] 43.05 kg/m2 Robb Elizondo MD Work Phone: [facility] 05-25-2025 14:10-0500 Body weight 103 kg Robb Elizondo MD Work Phone: [facility] 05-25-2025 14:10-0500 Body weight 102.97 kg Robb Elizondo MD Work Phone: [facility] 05-25-2025 14:10-0500 BP SITE #1 Robb Elizondo MD Work Phone: [facility] 05-25-2025 14:10-0500 Diastolic blood pressure 68 mm[Hg] Robb Elizondo MD Work Phone: [facility] 05-25-2025 14:10-0500 Heart rate 61 /min Robb Elizondo MD Work Phone: [facility] 05-25-2025 14:10-0500 HGHTCHNVIS Robb Elizondo MD Work Phone: [facility] 05-25-2025 14:10-0500 Systolic blood pressure 164 mm[Hg] Robb Elizondo MD Work Phone: [facility] 05-25-2025 14:10-0500 VITALSDONE Robb Elizondo MD Work Phone: [facility] 12-07-2024 00:24-0400 Body temperature 98.4 [degF] Out [facility] 12-07-2024 00:24-0400 Diastolic blood pressure 85 mm[Hg] Out [facility] 12-07-2024 00:24-0400 Heart rate 83 /min Out [facility] 12-07-2024 00:24-0400 Respiratory rate 18 /min Out [facility] 12-07-2024 00:24-0400 SaO2% (BldA) [Mass fraction] 100 % Out [facility] 12-07-2024 00:24-0400 Systolic blood pressure 205 mm[Hg] Out [facility] 12-06-2024 22:38-0400 Body height 154.94 cm Out [facility] 12-06-2024 22:38-0400 Body mass index (BMI) [Ratio] 42 kg/m2 Out [facility] 12-06-2024 22:38-0400 Body weight 100.92 kg Out [facility] 02-24-2024 13:31-0400 Body height 152.4 cm Saad Fuentes MD Work Phone: [facility] 02-24-2024 13:31-0400 Body mass index (BMI) [Ratio] 42.77 kg/m2 Saad Fuentes MD Work Phone: [facility] 02-24-2024 13:31-0400 Body weight 99.34 kg Saad Fuentes MD Work Phone: [facility] 08-31-2023 10:09-0500 Body height 154.9 cm Heriberto Kaba MD Work Phone: [facility] 08-31-2023 10:09-0500 Body mass index (BMI) [Ratio] 39.68 kg/m2 Heriberto Kaba MD Work Phone: [facility] [employer] 08-31-2023 10:09-0500 Body weight 95.25 kg Heriberto Kaba MD Work Phone: [facility] [employer] 08-28-2023 11:00-0500 Body height 154.9 cm [facility] Work Phone: [facility] [employer] 08-28-2023 11:00-0500 Body mass index (BMI) [Ratio] 39.68 kg/m2 [facility] Work Phone: [facility] [employer] 08-28-2023 11:00-0500 Body weight 95.25 kg [facility] Work Phone: [facility] [employer] 08-26-2023 14:52-0500 Body height 154.9 cm Heriberto Kaba MD Work Phone: [facility] [employer] 08-26-2023 14:52-0500 Body mass index (BMI) [Ratio] 39.68 kg/m2 Heriberto Kaba MD Work Phone: [facility] [employer] 08-26-2023 14:52-0500 Body weight 95.25 kg Heriberto Kaba MD Work Phone: [facility] [employer] 08-19-2023 09:19-0500 Body height 154.9 cm Heriberto Kaba MD Work Phone: [facility] [employer] 08-19-2023 09:19-0500 Body mass index (BMI) [Ratio] 39.68 kg/m2 Heriberto Kaba MD Work Phone: [facility] [employer] 08-19-2023 09:19-0500 Body weight 95.25 kg Heriberto Kaba MD Work Phone: [facility] [employer] Encounters Encounter Date Encounter Type Care Provider Facility Start: 05-25-2025 Visit out of hours Robb irizarry MD Work Phone: [employer] Work Phone: Start: 05-25-2025 In-person encounter Robb tidwell MD Work Phone: [facility] Work Phone: Start: 12-06-2024 End: 12-07-2024 Emergency department patient visit [facility] Doctor -Emergency Department Work Phone: Start: 02-24-2024 End: 02-24-2024 Office outpatient new 60 minutes Saad Fuentes MD Work Phone: [facility] Orthopedics Comment on above: Left knee pain, unsp ecified chronicity (Primary Dx) Start: 02-24-2024 End: 02-24-2024 Subsequent hospital visit by physician Saad Fuentes MD Work Phone: [facility] Radiology Start: 02-24-2024 ambulatory SAAD FUENTES [facility] Start: 12-17-2023 End: 12-17-2023 Telephone encounter Heriberto Kaba MD Work Phone: [facility] Comment on above: records form Start: 08-31-2023 Telephone encounter Heriberto Kaba MD Work Phone: [facility] Clinical Communication Comment on above: medication Start: 08-31-2023 End: 08-31-2023 Office outpatient visit 15 minutes Heriberto Kaba MD Work Phone: [facility] Comment on above: Primary osteoarthrit is of left knee (Primary Dx) Start: 08-31-2023 End: 08-31-2023 ambulatory HERIBERTO KABA [facility] Start: 08-28-2023 Telephone encounter Heriberto Kaba MD Work Phone: [facility] Comment on above: Advice Only Start: 08-28-2023 End: 08-28-2023 ambulatory HALLIE [facility] Start: 08-28-2023 End: 08-28-2023 Office outpatient visit 15 minutes [facility] 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 Work Phone: [facility] Comment on above: Acute pain of left k nee (Primary Dx); Primary osteoarthritis of left knee; Arthritis of left knee Start: 08-26-2023 End: 08-26-2023 Patient encounter procedure Heriberto Kaba MD Work Phone: [facility] Comment on above: Arthritis of left kn ee Start: 08-26-2023 End: 08-26-2023 ambulatory [facility] Start: 08-19-2023 End: 08-19-2023 Office outpatient new 30 minutes Heriberto Kaba MD Work Phone: [facility] Comment on above: Primary osteoarthrit is of left knee Start: 08-19-2023 End: 08-19-2023 Subsequent hospital visit by physician Vinicius Murry PA-C Work Phone: [facility] Comment on above: Left knee pain, unsp ecified chronicity Start: 08-19-2023 End: 08-19-2023 ambulatory [facility] Start: 08-19-2023 End: 08-19-2023 [facility] Start: 05-19-2023 Orders Only Vinicius Murry PA-C Work Phone: [facility] Comment on above: Left knee pain, unsp ecified chronicity (Primary Dx) Procedures Date Procedure Procedure Detail Performing Clinician Start: 05-25-2025 Osteoarthritis symptoms&funcjal status asses Robb Elizondo MD Work Phone: Start: 05-25-2025 BMI documented as ab ove normal parameters - follow-up documented Robb Elizondo MD Work Phone: Start: 05-25-2025 Current tobacco non- user cad cap copd pv dm Robb Elizondo MD Work Phone: Start: 05-25-2025 Documentation of cur rent medications Robb Elizondo MD Work Phone: Start: 05-25-2025 Pain assessment docu mented as positive - follow-up documented Robb Elizondo MD Work Phone: Start: 05-25-2025 MOTORIZED COLD THERA PY COMBO UNIT Robb Elizondo MD Work Phone: Start: 05-25-2025 JF Escamilla/ JOSE Elizondo MD Work Phone: Start: 12-06-2024 X-ray of knee, four or more views Out Town Doctor Plan of Treatment Date Care Activity Detail Author Start: 12-07-2024 [facility] Start: 03-20-2024 Influenza vaccination [facility] Start: 08-31-2023 End: 08-31-2023 Patient encounter procedure 08/31/2023 10:15 AM EST Office Visit [facility] [address] [place] [address] Heriberto Kaba MD [address] [place] [address] [facility] Start: 08-28-2023 End: 08-28-2024 C reactive protein [Mass/volume] in Serum or Plasma C-reactive protein Lab Routine Primary osteoarthritis of left knee Arthritis of left knee Expected: 08/28/2023 (Approximate), Expires: 08/28/2024 [facility] Work Phone: Comment on above: Expected: 08/28/2023 (Approximate), Expires: 08/28/2024 Start: 08-28-2023 End: 08-28-2024 Erythrocyte sedimentation rate Sedimentation rate, automated Lab Routine Primary osteoarthritis of left knee Arthritis of left knee Expected: 08/28/2023 (Approximate), Expires: 08/28/2024 [facility] Comment on above: Expected: 08/28/2023 (Approximate), Expires: 08/28/2024 Start: 05-19-2023 End: 05-19-2024 XR Knee - left 1 or 2 Views XR knee 1 or 2 views left Imaging Routine Left knee pain, unspecified chronicity Expected: 05/19/2023, Expires: 05/19/2024 [facility] Comment on above: Expected: 05/19/2023 , Expires: 05/19/2024 Start: 05-19-2023 End: 05-19-2024 XR knees anteroposterior standing bilateral XR knees anteroposterior standing bilateral Imaging Routine Left knee pain, unspecified chronicity Expected: 05/19/2023, Expires: 05/19/2024 [facility] Work Phone: Comment on above: Expected: 05/19/2023 , Expires: 05/19/2024 Start: 03-20-2023 COVID-19 Vaccine ( season) COVID-19 Vaccine ( season) [facility] Start: 03-20-2023 Influenza vaccination Influenza Vacc ine (#1) [facility] Start: 2018 Pneumococcal vaccination PNEUM OCOCCAL VACCINE SERIES (1 of 1 - PCV) [facility] Start: 2018 Pneumococcal Vaccine : 65+ Years (1 - PCV) Pneumococcal Vaccine: 65+ Years (1 - PCV) [facility] Start: 2018 Pneumococcal Vaccine : 65+ Years (1 of 1 - PCV) Pneumococcal Vaccine: 65+ Years (1 of 1 - PCV) [facility] Start: 2013 RSV Immunization age d 60 or older (1 - 1-dose 60+ series) RSV Immunization aged 60 or older (1 - 1-dose 60+ series) [facility] Start: 2013 RSV VACCINE (1 - 1-d ose 60+ series) RSV VACCINE (1 - 1-dose 60+ series) [facility] Start: 12-31-2003 Zoster vaccine hzv l caty for subcutaneous use ZOSTER (SHINGLES) VACCINE (1 of 2) [facility] Start: 12-31-2003 Zoster Vaccines (1 of 2) Zoster Vacc jose juan (1 of 2) [facility] Start: 1998 Screening for malign ant neoplasm of colon COLORECTAL CANCER SCREENING DISCUSSION [facility] Start: 1993 Lipid panel LIPID SCREENING [facility] Start: 1993 Screening for malign ant neoplasm of breast [facility] Start: 1974 Screening for malign ant neoplasm of cervix CERVICAL CANCER SCREENING DISCUSSION [facility] Start: 1972 DTaP/Tdap/Td Vaccine s (1 - Tdap) DTaP/Tdap/Td Vaccines (1 - Tdap) [facility] Start: 12-31-1971 Diabetes mellitus screening Diabetes Screening [facility] Start: 12-31-1971 Hepatitis C screening Hepatitis C Sc reening [facility] Start: 1965 Depression Screening Depression Scre ening [facility] Start: 07-01-1954 COVID-19 Vaccine (#1) COVID-19 Vacci ne (#1) [facility] Start: 1955 Hepatitis C screening HEPATITI S C VIRUS SCREENING [employer] [facility] Start: 1955 Medicare Annual Well ness (AWV) Medicare Annual Wellness (AWV) [facility] Start: 1955 Screening for malign ant neoplasm of colon [facility] Start: 1955 Screening for osteoporosis [facility] Patient Education ED Arthralgia ED Chronic Pain [facility] Work Phone: Patient referral [facility] Work Phone: Radiography for bone length studies XR BONE LENGTH STUDY Imaging Routine Left knee pain, unspecified chronicity 02/24/2024 1:24 PM EDT [employer] Work Phone: End: 08-19-2023 XR Knee - left 1 or 2 Views XR knee 1 or 2 views left Imaging Routine Left knee pain, unspecified chronicity Once for 1 Occurrences starting 08/19/2023 until 08/19/2023 [facility] [employer] Comment on above: Once for 1 Occurrenc es starting 08/19/2023 until 08/19/2023 XR Knee - left 4 Views XR KNEE L EFT 4+ VIEWS Imaging Routine Left knee pain, unspecified chronicity 02/24/2024 1:24 PM EDT [employer] End: 08-19-2023 XR knees anteroposterior standing bilateral XR knees anteroposterior standing bilateral Imaging Routine Left knee pain, unspecified chronicity Once for 1 Occurrences starting 08/19/2023 until 08/19/2023 [facility] [employer] [facility] Work Phone: Comment on above: Once for 1 Occurrenc es starting 08/19/2023 until 08/19/2023 Payers Date Payer Category Payer Self-pay 2021 Medicare [id number] 2021 Medicare [id number] 1955 Unknown [id number] 1955 Unknown [id number] Unknown [id number] Unknown [id number] Social History Date Type Detail Facility Tobacco smoking stat us MTIS Tobacco smoking consumption unknown [facility] Start: 1955 Sex Assigned At Female [facility] Start: 05-19-2023 Gender identity Identifies as female gender (finding) [facility] Start: 05-19-2023 Sexual orientation Heterosexual (fin ding) [facility] Start: 08-19-2023 End: 05-25-2025 Tobacco smoking status MTIS Never smoked tobacco [facility] Start: 08-19-2023 End: 02-24-2024 Tobacco use and exposure Smokeless tobacco non-user [facility] Start: 08-19-2023 End: 02-24-2024 History of Social function [facility] Start: 08-19-2023 End: 05-25-2025 Tobacco use panel [facility] Start: 1955 Sex assigned at Not on file [employer] Mental Status Date Assessment Result Facility 05-25-2025 Cognitive Function [facility] [employer] Work Phone: Clinical Notes 08-19-2023 to 12-07-2024 Tracie Tirado - 02/24/2024 1:30 PM Guillermo Fuentes MD - 02/24/2024 1:30 PM EDTTelephone Encounter - Britni Rajput - 01/27/2024 11:24 AM EDTTelephone Encounter - Elisa Ewing - 08/31/2023 2:41 PM EST Note Date & Type Note Facility 12-07-2024 Radiology Diagnostic study note [facility] Imaging Services [address] [place] [address] Knee 4 or More Views MR#: [id number] Acct: [id number] Name: BUSHRA SCOTT Rep #: [id number] : 1955 F 68 From: William Hanson MD PCP: OUT OF TOWN DOCTOR Status: REG ER Study:Knee 4 or More Views Date of Exam: 12/06/24 Exam# [id number] Ordering Dr: Gabe Chamorro DO PROCEDURE: KNEE 4 OR MORE VIEWS 12/06/2024 REASON FOR EXAM: INJURY/PAIN TECHNIQUE: 4 view(s) of the left knee COMPARISON: None. FINDINGS: Bones: No evidence of acute fracture or dislocation. Joints: Asymmetric joint space narrowing most pronounced in the medial compartment. Effusion: No effusion. Soft tissues: Soft tissues are unremarkable. Other: None. RAD/Knee 4 or More Views IMPRESSION: No evidence of acute fracture. Severe osteoarthrosis. Reading Location: [id number] CC: Dr. 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 She had a twisting injury where she tore her meniscus 2 years ago. She states the knee has not gotten any better so she decided to try a Synvisc injection back in August. She is allergic to many steroids so she was to afraid to try an injection of that. She states the Synvisc injection felt like it went into the wrong place and has slid down her leg. She does have quite a bit of swelling on the left leg in comparison to the right. She wants to discuss all options today. Date: 02/24/2024 1:33 PM Patient: Bushra Scott MR#: [id number] : 1955 Age: 68 y.o. Referring Physician: Lionel Ray MD Insurance: Payor: MEDICARE / Plan: MEDICARE A AND B / Product Type: *No Product type* / Chief Complaint Patient presents with Left Knee - Pain There were no vitals taken for this visit. Pain 1. Are you having pain? 2. On a scale from 1-10: Recent Labs No results found for: CRP No results found for: SEDRATE No results found for: WBC, WBCCOUNT, WBCFETAL, HGB, HCT, PLATELET, MCV History No past medical history on file. No past surgical history on file. Family History: Her family history is not on file. Social History: Her has no history on file for tobacco use, alcohol use, and drug use. No outpatient medications prior to visit. No facility-administered medications prior to visit. Allergies: She has no allergies on file. HPI: Patient is here today for evaluation of left knee pain. Primary complaint is pain, impairment in the knee and a decreased quality of life secondary to her left knee pain. The pain radiates locally, not associated with numbness or tinging. She has a lot of instability with it. She has experienced locking, popping, catching and clicking. Patient is apprehensive of falling on a daily basis. The more she is on it, the more it hurts. She had an injury to the knee 2 years ago and tore her meniscus. She states the knee has not gotten any better so she decided to try a Synvisc injection back in August that did not seem to work for her current symptoms. She has been using crutches since August due to her knee pain. Patient is here today for evaluation and to determine treatment options. Her pain is a 8/10. PHYSICAL EXAM: This is an alert, oriented, and age-appropriate female. She is in no distress. Pleasant and cooperative. EXTREMITIES: The upper extremities have no gross deformities. Normal stability. Skin Intact. 5/5 motor. Intact sensation. Normal neurovascular status. Normal coordination. The lower extremities have no gross deformities. Normal stability. Skin Intact. 5/5 motor. Intact sensation. Normal neurovascular status. Normal coordination. Range of motion upon exam today is 12-115. Stable examination to varus and valgus stress. Crepitus throughout the arc of motion. Painful range of motion. Full motion of hip. No pain. No impingement. No instability. Contralateral leg has normal alignment. Full motion. No pain. No impingement. No instability. IMAGING: Plain film radiographs were reviewed. Long-standing films of mechanical axis that falls to the medial compartment of the left knee. Multiple views of the knee demonstrate severe arthritis of the knee with loss of joint space, subchondral sclerosis, osteophyte formation, and mfan-qk-ekeo contact. IMPRESSION: 1.) Severe symptomatic end-stage left knee arthritis 2.) Obesity, BMI of 43 PLAN: We have discussed in great detail the nature of the diagnosis, the natural history and expected progression which is likely worsening pain, instability with risks of falls, and additional joint wear and or bone loss. We have discussed the options for treatment including both conservative and operative treatments. We have discussed the risks, benefits, and alternatives to each treatment. Bushra is interested in surgical management in the form of a left total knee replacement. Bushra understands that the potential benefits are reduced pain, improved stability and improved function. Bushra also understands that the major limb and/or life threatening risks include, but are not limited to: bleeding, infection, neurovascular injury including foot drop or paralysis, dislocation, component failure, implant loosening, ligament or tendon disruption, fracture, stiffness, chronic pain, chronic disability, need for further surgery, blood clots in the extremities or lungs, stroke, heart attack, loss of limb, and ultimately loss of life. 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 Despite these risks, the patient would like to proceed with surgical planning. Today, we will initiate the pre-surgical process including nasal MRSA screening, scheduling an appointment for [facility] and the potential surgical date, and reviewing and signing the consent forms. We discussed the positives of losing weight with the recovery process. She is currently a 43 BMI and we discuss being 40 or below would be ideal. I have reviewed the findings of my clinical staff below and agree with their assessment. Vitals: 02/24/24 1331 Weight: 99.3 kg (219 lb) Height: 1.524 m (5') Pain Recent Labs No results found for: CRP No results found for: SEDRATE No results found for: WBC, WBCCOUNT, WBCFETAL, HGB, HCT, PLATELET, MCV Past Medical History: Diagnosis Date Anemia Arthritis Difficult intubation Past Surgical History: Procedure Laterality Date SECTION TONSILLECTOMY History reviewed. No pertinent family history. Social History Socioeconomic History Marital status: Single Tobacco Use Smoking status: Never Smokeless tobacco: Never Current Outpatient Medications: Ibuprofen 400 MG tablet, Take 1 tablet by mouth every 6 hours as needed for Mild Pain., Disp: , Rfl: Allergies Allergen Reactions Harsh Xtoxzx-Cjzmptrgxee-Iikbha Latex [Wound Dressing Adhesive] Antihistamine & Nasal Deconges [Fexofenadine-Pseudoephed Er] Benadryl [Diphenhydramine] Peg-8 Beeswax [Polyethylene Glycol] Penicillins Predicort [Prednisolone] Sulfa Antibiotics Tetanus Toxoids documented in this encounter [facility] 01-27-2024 Telephone encounter Note MITCHELL uploaded to [employer] and was sent to [facility] [facility]. They called in and asked if we can just fax since she has not gotten in mail. [phone] Faxed OV notes. [facility] 01-27-2024 Miscellaneous Notes MITCHELL uploaded to [employer] and was sent to [employer]. They called in and asked if we can just fax since she has not gotten in mail. [phone] Faxed OV notes. I mailed out the MITCHELL to the patient. Can you help with this? Pearl called stating the patient told them she's been calling and leaving voicemails for the office about getting her records. Said someone told her there was a fee. [facility] in [place]. Called patient to advise we need a signed release. She asked we mail it to her. Can you mail a MITCHELL form to the patient's home? documented in this encounter [facility] 12-18-2023 Telephone encounter Note I mailed out the MITCHELL to the patient. [facility] 12-18-2023 Miscellaneous Notes I mailed out the MITCHELL to the patient. Can you help with this? Pearl called stating the patient told them she's been calling and leaving voicemails for the office about getting her records. Said someone told her there was a fee. [facility] in [place]. Called patient to advise we need a signed release. She asked we mail it to her. Can you mail a MITCHELL form to the patient's home? documented in this encounter [facility] 12-17-2023 Telephone encounter Note Can you help with this? [facility] 12-17-2023 Miscellaneous Notes Can you help with this? Pearl called stating the patient told them she's been calling and leaving voicemails for the office about getting her records. Said someone told her there was a fee. [facility] in [place]. Called patient to advise we need a signed release. She asked we mail it to her. Can you mail a MITCHELL form to the patient's home? documented in this encounter [facility] 12-17-2023 Telephone encounter Note Pearl called stating the patient told them she's been calling and leaving voicemails for the office about getting her records. Said someone told her there was a fee. [facility] in [place]. Called patient to advise we need a signed release. She asked we mail it to her. Can you mail a MITCHELL form to the patient's home? [facility] 08-31-2023 Telephone encounter Note Noted [facility] 08-31-2023 Miscellaneous Notes Noted Name of caller: Bushra Contact phone number: [phone] Relationship to Patient: Self Provider: [place] Practice: Ortho Chief Complaint/Reason for Call: Pt called in stating she will not be using the Voltaren Gel Dr Kaba recommended. Pt states there are way too many side effects and pt will not touch it. Pt with all that is listed that could happen she is scared. FYI Best time of day caller can be reached: Any Patient advised that office/PCP has 24-48 business hours to return their call: N/A documented in this encounter [facility] 08-31-2023 Telephone encounter Note Name of caller: Bushra Contact phone number: [phone] Relationship to Patient: Self Provider: [place] Practice: Ortho Chief Complaint/Reason for Call: Pt called in stating she will not be using the Voltaren Gel Dr Kaba recommended. Pt states there are way too many side effects and pt will not touch it. Pt with all that is listed that could happen she is scared. FYI Best time of day caller can be reached: Any Patient advised that office/PCP has 24-48 business hours to return their call: N/A [facility] 08-31-2023 History of Presen t illness Narrative Images from the original note were not included. [facility] [address] [facility] [id number] Dept: [phone] Dept 08/31/2023 Chief Complaint Patient presents with Follow-up Left knee pain Subjective: Bushra is a 67 y.o. female who presents for repeat evaluation of the left knee. At the last visit we initiated non-operative treatment consisting of... ~ Synvisc One injection on 08/26/23 ~ Crutches ~ NSAIDs ~ Saw [place] on 08/28/23 - labs ordered - patient states she has had no improvement over the last 3 days The patient reports the treatment has not provided significant prolonged relief. Review of Systems Constitutional: Negative for chills and fever. Respiratory: Negative for cough and shortness of breath. Cardiovascular: Negative for claudication and leg swelling. Musculoskeletal: Positive for joint line pain. Negative for falls. Skin: Negative for itching and rash. Neurological: Negative for sensory change and focal weakness She also added at the end of the visit that she did get bite by a racoon on her right leg about 3 weeks ago. That wound appears completely healed and so concerning symptoms present at this time. She is refusing to get the rabies vaccine because she is scared of an reaction. No past medical history on file. No past surgical history on file. Social History Socioeconomic History Marital status: Single Spouse name: Not on file Number of children: Not on file Years of education: Not on file Highest education level: Not on file Occupational History Not on file Tobacco Use Smoking status: Never Smokeless tobacco: Never Substance and Sexual Activity Alcohol use: Not on file Drug use: Not on file Sexual activity: Not on file Other Topics Concern Not on file Social History Narrative Not on file Social Determinants of Health Financial Resource Strain: Not on file Food Insecurity: Not on file Transportation Needs: Not on file Physical Activity: Not on file Stress: Not on file Social Connections: Not on file Intimate Partner Violence: Not on file Housing Stability: Not on file No family history on file. Allergies Allergen Reactions Diphenhydramine Other reaction(s): Swelling Prednisone Other reaction(s): Itching Latex Other reaction(s): Unknown Penicillins Other reaction(s): Unknown Sulfa Antibiotics Terfenadine Other reaction(s): Unknown Objective: Ht 5' 1 (1.549 m) Wt 210 lb (95.3 kg) BMI 39.68 kg/m Pt is a WD/WN female in no acute distress. She appears her stated age. Mood and affect are normal. She is A&O x 3. Gait: antalgic with crutches. LEFT KNEE: Inspection shows skin is warm, dry and intact. There are no obvious scars or previous incisions.. Alignment is mild varus. ROM shows extension is 15, flexion 90. The knee is stable to varus/valgus stress (<6 degrees) and is correctable. Additional findings include medial joint line tenderness, no effusion and no erythema. Diffuse knee swelling noted. Anterior, posterior drawer negative. +PF/DF/EHL. SILT distally. DP/PT palpable. Straight leg raise negative for inciting radicular symptoms. Bilateral hip range of motion is not painful. Lab Results: RELEVANT LABS: Component Ref Range & Units 3 d ago SED RATE BY MODIFIED WESTERGREN < OR = 30 mm/h 6 Radiology Findings: Previous images in our system reviewed again today. XRAYS: Indication: Left knee pain. Exam Ordered: Radiographs of the knee include a standing anteroposterior view, a standing posteroanterior view, a lateral view in flexion, and a sunrise view. Details of Examination: Exam shows evidence of significant joint space narrowing (bone on bone) particularly in the medial compartment, significant peripheral osteophyte formation, and subchondral sclerosis; all consistent with end-stage degenerative arthritis of the knee. No other significant findings are noted. Impression: Degenerative Arthritis, left knee Assessment 1. Primary osteoarthritis of left knee Plan The above findings were discussed with patient length. We discussed the options of conservative versus possible surgical management of their knee. At this point considering the patient's level of activity, pain, and radiographic findings, I recommended continued conservative management. This treatment will consist of... ~ Activity modification ~ NSAID's (OTC preferred) - The risks and benefits of NSAID medications were discussed. NSAID's can have potential renal/cardiac/gastric side effects. ~ Topical Voltaren ~ ESR normal, low concern for infection. The risks, benefits, and alternatives to all of the treatment options were thoroughly explained. Patient will call us with any questions or concerns regarding this plan or if any significant issues arise. Follow-up prn, discussed process of surgery today. She wants to hold off if possible. We discussed possible Toradol injection as she can't have steroids to improve pain. Given poor response to most medications, will hold off today. We did discuss consulting with [facility] for Iovera today. She will think about this and determine next steps and let us know. 20 minutes spent on this encounter discussing options and patient evaluation and history. Electronically signed by Heriberto Kaba M.D. 08/31/2023 at 10:36 AM. documented in this encounter [facility] 08-31-2023 Instructions Rowena Velazco [facility] - 08/31/2023 10:15 AM EST Images from the original note were not included. HOW TO USE VOLTAREN GEL: Voltaren dosing card Read the label and use the enclosed dosing card. Do not use on more than two body areas at the same time. Dosage Using the dosing card, apply the following amounts: Small joint areas (hand, wrist, elbow, ankle): 2.25 inches Larger joint areas (shoulder, knee, foot): 4.5 inches Voltaren being applied to the knee instuctions: Rub gently into affected area. It is intended to be used 4 times a day everyday for up to 21 days. With 2-dairh-r-day use, you may start to feel relief within a few days. DRUG INFORMATION: Diclofenac topical Pronunciation: dye KLOE fen ak TOP ik al Brand: DST Plus Rafael, Pennsaid, Solaraze, Voltaren Topical What is the most important information I should know about diclofenac topical? Diclofenac can increase your risk of fatal heart attack or stroke, especially if you use it intermediate or take high doses, or if you have heart disease. Do not use this medicine just before or after heart bypass surgery (coronary artery bypass graft, or CABG). Diclofenac may also cause stomach or intestinal bleeding, which can be fatal. These conditions can occur without warning while you are using diclofenac, especially in older adults. What is diclofenac topical? Diclofenac is a nonsteroidal anti-inflammatory drug (NSAID). Diclofenac topical (for the skin) is used to treat joint pain caused by osteoarthritis. Pennsaid is for use on the knees. Voltaren Topical is for use on the hands, wrists, elbows, knees, ankles, or feet. This medicine may not be effective in treating arthritis pain elsewhere in the body. Solaraze is used to treat warty overgrowths of skin (actinic keratoses) on sun-exposed areas of the body. Diclofenac topical may also be used for purposes not listed in this medication guide. What should I discuss with my healthcare provider before using diclofenac topical? Diclofenac can increase your risk of fatal heart attack or stroke, especially if you use it long term care phlebotomist or take high doses, or if you have heart disease. Even people without heart disease or risk factors could have a stroke or heart attack while taking this medicine. Do not use this medicine just before or after heart bypass surgery (coronary artery bypass graft, or CABG). Diclofenac may also cause stomach or intestinal bleeding, which can be fatal. These conditions can occur without warning while you are using diclofenac, especially in older adults. You should not use this medicine if you are allergic to diclofenac (Voltaren, Cataflam, Flector, and others), or if you have ever had an asthma attack or severe allergic reaction after taking aspirin or an NSAID. Diclofenac topical is not approved for use by anyone younger than 18 years old. Tell your doctor if you have ever had: heart disease, high blood pressure, high cholesterol, diabetes, or if you smoke; a heart attack, stroke, or blood clot; stomach ulcers, bleeding in your stomach or intestines; asthma; liver or kidney disease; fluid retention. Diclofenac can affect ovulation and it may be harder to get while you are using this medicine. However, using diclofenac topical during the last 3 months of may harm the unborn baby. Tell your doctor if you are or plan to become . It may not be safe to breast-feed while using this medicine. Ask your doctor about any risk. How should I use diclofenac topical? Follow all directions on your prescription label and read all medication guides. Use the lowest dose that is effective in treating your condition. Do not take by mouth. Topical medicine is for use only on the skin. Rinse with water if this medicine gets in your eyes or mouth. Read and carefully follow any Instructions for Use provided with your medicine. Ask your doctor or pharmacist if you do not understand these instructions. Do not apply diclofenac topical to an open skin wound, or on areas of infection, rash, burn, or peeling skin. Store at room temperature away from moisture and heat. Do not freeze. Store Pennsaid in an upright position. What happens if I miss a dose? Apply the medicine as soon as you can, but skip the missed dose if it is almost time for your next dose. Do not apply two doses at one time. What happens if I overdose? Seek emergency medical attention or call the Poison Help line at . What should I avoid while using diclofenac topical? Ask a doctor or pharmacist before using other medicines for pain, fever, swelling, or cold/flu symptoms. They may contain ingredients similar to diclofenac (such as aspirin, ibuprofen, ketoprofen, or naproxen). Avoid drinking alcohol. It may increase your risk of stomach bleeding. Avoid exposing treated skin to heat, sunlight, or tanning beds. Heat can increase the amount of diclofenac you absorb through your skin. Avoid getting this medicine in your eyes. If contact does occur, rinse with water. Call your doctor if you have eye irritation that lasts longer than 1 hour. Do not use cosmetics, sunscreen, lotions, insect repellant, or other medicated skin products on the same area you treat with diclofenac topical. What are the possible side effects of diclofenac topical? Get emergency medical help if you have signs of an allergic reaction (hives, sneezing, runny or stuffy nose, wheezing or trouble breathing, swelling in your face or throat) or a severe skin reaction (fever, sore throat, burning eyes, skin pain, red or purple skin rash with blistering and peeling). Although the risk of serious side effects is low when diclofenac is applied to the skin, this medicine can be absorbed through the skin, which may cause steroid side effects throughout the body. Stop using diclofenac and seek emergency medical attention if you have signs of a heart attack or stroke: chest pain spreading to your jaw or shoulder, sudden numbness or weakness on one side of the body, slurred speech, feeling short of breath. Also call your doctor at once if you have: the first sign of any skin rash, no matter how mild; swelling, rapid weight gain; severe headache, blurred vision, pounding in your neck or ears; little or no urination; liver problems --nausea, diarrhea, stomach pain (upper right side), tiredness, itching, dark urine, yousif-colored stools, jaundice (yellowing of the skin or eyes); low red blood cells (anemia) --pale skin, unusual tiredness, feeling light-headed or short of breath, cold hands and feet; or signs of stomach bleeding --bloody or tarry stools, coughing up blood or vomit that looks like coffee grounds. Common side effects may include: heartburn, gas, stomach pain, nausea, vomiting; diarrhea, constipation; headache, dizziness, drowsiness; stuffy nose; itching, increased sweating; increased blood pressure; or skin redness, itching, dryness, scaling, or peeling where the medicine was applied. This is not a complete list of side effects and others may occur. Call your doctor for medical advice about side effects. You may report side effects to FDA at 2-335-KHI-1297. What other drugs will affect diclofenac topical? Ask your doctor before using diclofenac if you take an antidepressant. Taking certain antidepressants with an NSAID may cause you to bruise or bleed easily. Tell your doctor about all your current medicines, especially: cyclosporine; lithium; methotrexate; a blood thinner (warfarin, Coumadin, Jantoven); heart or blood pressure medication, including a diuretic or water pill; or steroid medicine (prednisone and others). This list is not complete and many other drugs may affect diclofenac. This includes prescription and [id number] medicines, vitamins, and herbal products. Not all possible drug interactions are listed here. Where can I get more information? Your pharmacist can provide more information about diclofenac topical. Remember, keep this and all other medicines out of the reach of children, never share your medicines with others, and use this medication only for the indication prescribed. Every effort has been made to ensure that the information provided by [employer]. ('[employer]') is accurate, up-to-date, and complete, but no guarantee is made to that effect. Drug information contained herein may be time sensitive. [employer] information has been compiled for use by healthcare practitioners and consumers in the [place] and therefore [employer] does not warrant that uses outside of the [place] are appropriate, unless specifically indicated otherwise. [employer]'s drug information does not endorse drugs, diagnose patients or recommend therapy. [employer] drug information is an informational resource designed to assist licensed healthcare practitioners in caring for their patients and/or to serve consumers viewing this service as a supplement to, and not a substitute for, the expertise, skill, knowledge and judgment of healthcare practitioners. The absence of a warning for a given drug or drug combination in no way should be construed to indicate that the drug or drug combination is safe, effective or appropriate for any given patient. [employer] does not assume any responsibility for any aspect of healthcare administered with the aid of information [employer] provides. The information contained herein is not intended to cover all possible uses, directions, precautions, warnings, drug interactions, allergic reactions, or adverse effects. If you have questions about the drugs you are taking, check with your doctor, nurse or pharmacist. Copyright 1405-6370 [employer]. Version: 10.. Revision date: 04/23/2018. Care instructions adapted under license by [employer]. If you have questions about a medical condition or this instruction, always ask your healthcare professional. [employer] disclaims any warranty or liability for your use of this information. documented in this encounter [facility] [employer] 08-28-2023 History of Presen t illness Narrative Images from the original note were not included. [facility] [address] [place] [address] [place] [id number] Dept: [phone] Dept 08/28/2023 Chief Complaint Patient presents with Follow-up Gel injection reaction LV: 08/19/23 Subjective: Bushra Scott Patient presents today left knee pain and swelling following a gel injection on Thursday. The knee today is feeling worse. The patient reports increased swelling in medial side of left knee that continues down into her naranjo. The patient does report multiple allergies and is worried that she had a reaction to the injections. Non-operative treatment to date has consisted of: NSAIDS: Yes Tylenol: Yes Technical Editor Brace: No Cortisone injections: Yes Viscosupplementation: Yes Assistive Devices: crutches Therapy/HEP: No Narcotics: No Review of Systems Constitutional: Negative for activity change. HENT: Negative for congestion. Cardiovascular: Negative for leg swelling. Musculoskeletal: Positive for arthralgias, gait problem and joint swelling. Skin: Negative for wound. Neurological: Negative for weakness. No past medical history on file. No past surgical history on file. Social History Socioeconomic History Marital status: Single Spouse name: Not on file Number of children: Not on file Years of education: Not on file Highest education level: Not on file Occupational History Not on file Tobacco Use Smoking status: Never Smokeless tobacco: Never Substance and Sexual Activity Alcohol use: Not on file Drug use: Not on file Sexual activity: Not on file Other Topics Concern Not on file Social History Narrative Not on file Social Determinants of Health Financial Resource Strain: Not on file Food Insecurity: Not on file Transportation Needs: Not on file Physical Activity: Not on file Stress: Not on file Social Connections: Not on file Intimate Partner Violence: Not on file Housing Stability: Not on file No family history on file. Allergies Allergen Reactions Diphenhydramine Other reaction(s): Swelling Prednisone Other reaction(s): Itching Latex Other reaction(s): Unknown Penicillins Other reaction(s): Unknown Sulfa Antibiotics Terfenadine Other reaction(s): Unknown Objective: Ht 5' 1 (1.549 m) Wt 210 lb (95.3 kg) BMI 39.68 kg/m Pt is a WD/WN female in no acute distress but complaining of severe pain with activity. She appears her stated age. Mood and affect are normal. She is A&O x 3. Gait: antalgic. LEFT KNEE: Inspection shows skin is warm, dry and intact. There are no obvious scars or previous incisions. Alignment is neutral. There is an extensive amount of medial swelling extending into the thigh and down the naranjo. No redness or warmth present. ROM shows extension is 0, flexion 120. The knee is stable to varus/valgus stress (<6 degrees). +PF/DF/EHL. SILT distally. DP/PT palpable. Straight leg raise negative for inciting radicular symptoms. XRAYS: No new imaging since last visit Assessment 1. Acute pain of left knee 2. Primary osteoarthritis of left knee 3. Arthritis of left knee Bushra is here today complaining of left knee pain following a gel injection on Thursday. Her and her report that the pain started instantly during the injections and she left thinking it would get better. Soon after going home she start to get medial knee swelling along with the pain when up with activity. Zero pain is relaxing in the recliner. She denies any falls or injuries since the visit. Denies fever, chills, redness or warmth in the knee. After I reviewed with her that I feel she is having an inflammatory response to the injection she proceeded to tell me that she has several allergies that are not listed in her chart (example: after her tetanus shot her entire arm became huge and swollen and almost killed her). I discussed with her that it does not present like an infection but that I am going to get an ESR/CRP to rule out. Plan was to get her a medrol dose pac to help with the swelling but she also has a severe allergy to steroids and declined. She can only take Ibuprofen so I instructed her to continue that scheduled for the next 5 days, along with aggressive ice and elevation. I applied an mary wrap from toes to thigh to aid in the edema but instructed her to remove it a minium of 3 times a day to assess her leg. She can continue with WBAT and will follow up with Dr. Kaba on Thursday. We reviewed signs and symptoms of infection. The risks, benefits, and alternatives to all of the treatment options were thoroughly explained. Patient will call us with any questions or concerns regarding this plan or if any significant issues arise she is to report to the ED. This treatment will consist of... ~ Followup with Dr. Kaba on 08/31/23 *She also added at the end of the visit that she did get bite by a racoon on her right leg about 3 weeks ago. That wound appears completely healed and so concerning symptoms present at this time. Electronically signed by MILVIA Taylor CNP 08/28/2023 at 1:34 PM. Dictated using [employer] Version 2.4 Proof read however unrecognized voice recognition errors may have occurred documented in this encounter [facility] 08-28-2023 Telephone encounter Note Preston Sterling had a pseudosepsis reaction to Synvisc a couple weeks ago, I just gave her a Dosepack and she got better. For her she is allergic to steroids so we don't have many options for her... Thank you for seeing her though much appreciated. [facility] [employer] Work Phone: 08-28-2023 Miscellaneous Notes Preston Sterling had a pseudosepsis reaction to Synvisc a couple weeks ago, I just gave her a Dosepack and she got better. For her she is allergic to steroids so we don't have many options for her... Thank you for seeing her though much appreciated. FYI. They put her on the schedule to see Hallie this morning. Nurse Triage: Situation: Patient called orthopedic nurse triage line and spoke with Irina Archer RN regarding increased swelling in left knee s/p gel injection on 08/26/23, also inability to walk more than 3 steps without crutches. States she has multiple allergies. Background: Bushra is approximately 2 day(s) s/p left knee gel injection with Dr. Kaba Assessment: Bushra complains of new symptoms to include increased swelling to injection site, inside portion of left knee, behind knee and partially down leg Currently pain is present, but that it is a different pain than before injection Patient states she is taking ibuprofen, ice and elevating. Bushra denies numbness and tingling States when she got injection, she was unable to walk right after and was taken to car in a w/c Capillary refill: brisk Erythema: No Swelling: Yes Effusion: No Calf pain or tenderness: No Recommendation: Telephone encounter sent to clinical staff provider to advise Patient cannot send in photo[place] Advised to have patient come into office to be seen by provider. Made appt with Hallie Monge at 11am per clinical staff Questions about gel injection from 08/26/2023 visit for LT knee. She was wheeled out from office due to unable to walk after injection. Using crutches currently due to walking difficulty. Swelling under and inside of LT knee. Mars ball area where injection was placed on knee is present. Please return call to address if this is normal after gel injection, and what she can do for relief. Has tried icing. documented in this encounter [facility] 08-28-2023 Telephone encounter Note FYI. They put her on the schedule to see Hallie this morning. [facility] 08-28-2023 Telephone encounter Note Nurse Triage: Situation: Patient called orthopedic nurse triage line and spoke with Irina Archer RN regarding increased swelling in left knee s/p gel injection on 08/26/23, also inability to walk more than 3 steps without crutches. States she has multiple allergies. Background: Bushra is approximately 2 day(s) s/p left knee gel injection with Dr. Kaba Assessment: Bushra complains of new symptoms to include increased swelling to injection site, inside portion of left knee, behind knee and partially down leg Currently pain is present, but that it is a different pain than before injection Patient states she is taking ibuprofen, ice and elevating. Bushra denies numbness and tingling States when she got injection, she was unable to walk right after and was taken to car in a w/c Capillary refill: brisk Erythema: No Swelling: Yes Effusion: No Calf pain or tenderness: No Recommendation: Telephone encounter sent to clinical staff provider to advise Patient cannot send in photo. [place]. Advised to have patient come into office to be seen by provider. Tiffany cui with Hallie Monge at 11am per clinical staff [facility] [employer] 08-28-2023 Telephone encounter Note Questions about gel injection from 08/26/2023 visit for LT knee. She was wheeled out from office due to unable to walk after injection. Using crutches currently due to walking difficulty. Swelling under and inside of LT knee. Mars ball area where injection was placed on knee is present. Please return call to address if this is normal after gel injection, and what she can do for relief. Has tried icing. [facility] [employer] 08-26-2023 History of Presen t illness Narrative Images from the original note were not included. [facility] [address] [place] [address] Dept: [phone] Dept 08/26/2023 Chief Complaint Patient presents with Follow-up Fu: Left knee synvisc one injection. Subjective: Bushra is a 67 y.o. female who presents for repeat evaluation of the left knee. At the last visit we initiated non-operative treatment consisting of... ~ Activity modification ~ NSAID's (OTC preferred) - The risks and benefits of NSAID medications were discussed. NSAID's can have potential renal/cardiac/gastric side effects. ~ Tylenol ~ Physical therapy (home exercise program provided) ~ Submitting to insurance for gel injection. ~ Patient does not want surgery due [place] would like to continue. ~ Left knee brace, patient has OTC brace already Pt here today for Left Knee Synvisc one gel injection. Review of Systems Constitutional: Negative for activity change. HENT: Negative for congestion. Cardiovascular: Negative for leg swelling. Musculoskeletal: Positive for arthralgias, gait problem and joint swelling. Skin: Negative for wound. Neurological: Negative for weakness. History reviewed. No pertinent past medical history. History reviewed. No pertinent surgical history. Social History Socioeconomic History Marital status: Single Spouse name: Not on file Number of children: Not on file Years of education: Not on file Highest education level: Not on file Occupational History Not on file Tobacco Use Smoking status: Never Smokeless tobacco: Never Substance and Sexual Activity Alcohol use: Not on file Drug use: Not on file Sexual activity: Not on file Other Topics Concern Not on file Social History Narrative Not on file Social Determinants of Health Financial Resource Strain: Not on file Food Insecurity: Not on file Transportation Needs: Not on file Physical Activity: Not on file Stress: Not on file Social Connections: Not on file Intimate Partner Violence: Not on file Housing Stability: Not on file No family history on file. Allergies Allergen Reactions Diphenhydramine Other reaction(s): Swelling Prednisone Other reaction(s): Itching Latex Other reaction(s): Unknown Penicillins Other reaction(s): Unknown Sulfa Antibiotics Terfenadine Other reaction(s): Unknown Objective: Ht 5' 1 (1.549 m) Wt 210 lb (95.3 kg) BMI 39.68 kg/m Pt is a WD/WN female in no acute distress. She appears her stated age. Mood and affect are normal. She is A&O x 3. Gait: antalgic. RIGHT KNEE: Inspection shows skin is warm, dry and intact. There are no obvious scars or previous incisions.. Alignment is neutral. ROM shows extension is 0, flexion 125. The knee is stable to varus/valgus stress (<6 degrees) and is not correctable. Additional findings include , no effusion, no erythema, and no tenderness. Anterior, posterior drawer negative. +PF/DF/EHL. SILT distally. DP/PT palpable. Straight leg raise negative for inciting radicular symptoms. LEFT KNEE: Inspection shows skin is warm, dry and intact. There are no obvious scars or previous incisions.. Alignment is significant varus. ROM shows extension is 0, flexion 120. The knee is stable to varus/valgus stress (<6 degrees) and is correctable. Additional findings include medial joint line tenderness, no effusion and no erythema. Anterior, posterior drawer negative. +PF/DF/EHL. SILT distally. DP/PT palpable. Straight leg raise negative for inciting radicular symptoms. Bilateral hip range of motion is not painful. Lab Results: RELEVANT LABS: NONE Radiology Findings: 04/08/23 images obtained by outside radiology department independently reviewed by myself today in office. XRAYS: Indication: Left knee pain. Exam Ordered: Radiographs of the knee include a standing anteroposterior view, a standing posteroanterior view, a lateral view in flexion, and a sunrise view. Details of Examination: Exam shows evidence of significant joint space narrowing (bone on bone) particularly in the medial compartment, significant peripheral osteophyte formation, and subchondral sclerosis; all consistent with end-stage degenerative arthritis of the knee. No other significant findings are noted. Impression: Degenerative Arthritis, left knee Assessment 1. Arthritis of left knee Plan The above findings were discussed with patient length. We discussed the options of conservative versus possible surgical management of their knee. At this point considering the patient's level of activity, pain, and radiographic findings, I recommended continued conservative management. This treatment will consist of... ~ Gel injection - Procedure(s) Note: After risks and benefits of visco/gel injection were reviewed with the patient, they elected to proceed. After a triple alcohol sterile preparation, a Synvisc one injection was given through a anterolateral portal of the left knee. The patient tolerated the injection(s) well. A band-aid was placed. Post-injection instructions were reviewed. The risks, benefits, and alternatives to all of the treatment options were thoroughly explained. Patient will call us with any questions or concerns regarding this plan or if any significant issues arise. Follow-up PRN. Electronically signed by Heriberto Kaba M.D. 08/26/2023 at 3:09 PM. documented in this encounter [facility] 08-19-2023 History of Presen t illness Narrative Images from the original note were not included. [facility] [place] [address] [place] [address] Dept: [phone] Dept 08/19/2023 Chief Complaint Patient presents with New Patient L knee pain Subjective: Bushra is a 67 y.o. female who presents for evaluation of the left knee. Symptoms began gradually several years ago. She describes the symptoms as aching. The pain is medial. Symptoms improve with rest, ice, medication: Ibuprofen, Tylenol, biofreeze used and beneficial. The symptoms are exacerbated by stair climbing, walking on uneven ground . The knee has not given out or felt unstable. The patient can bend and straighten the knee fully and does not have mechanical symptoms (catching, locking). Able to walk 2-3 blocks and is able to use stairs. Overall, the patient feels as if this condition is moderately impacting their quality of life and ability to do activities of daily living. No associated radicular pain contributing nor any radiating hip pain. Previous Surgery: No Non-operative treatment to date has consisted of: NSAIDS: Yes Narcotics: No Therapy: None. Cortisone injections: No Viscosupplementation: No Assistive Devices: None Bracing: Yes Attempted Weight Loss: No Medications reviewed. Review of Systems Constitutional: Negative for activity change. HENT: Negative for congestion. Cardiovascular: Negative for leg swelling. Musculoskeletal: Positive for arthralgias, gait problem and joint swelling. Skin: Negative for wound. Neurological: Negative for weakness. History reviewed. No pertinent past medical history. History reviewed. No pertinent surgical history. Social History Socioeconomic History Marital status: Single Spouse name: Not on file Number of children: Not on file Years of education: Not on file Highest education level: Not on file Occupational History Not on file Tobacco Use Smoking status: Never Smokeless tobacco: Never Substance and Sexual Activity Alcohol use: Not on file Drug use: Not on file Sexual activity: Not on file Other Topics Concern Not on file Social History Narrative Not on file Social Determinants of Health Financial Resource Strain: Not on file Food Insecurity: Not on file Transportation Needs: Not on file Physical Activity: Not on file Stress: Not on file Social Connections: Not on file Intimate Partner Violence: Not on file Housing Stability: Not on file No family history on file. Allergies Allergen Reactions Diphenhydramine Other reaction(s): Swelling Prednisone Other reaction(s): Itching Latex Other reaction(s): Unknown Penicillins Other reaction(s): Unknown Sulfa Antibiotics Terfenadine Other reaction(s): Unknown Objective: Ht 5' 1 (1.549 m) Wt 210 lb (95.3 kg) BMI 39.68 kg/m Pt is a WD/WN female in no acute distress. She appears her stated age. Mood and affect are normal. She is A&O x 3. Gait: antalgic. RIGHT KNEE: Inspection shows skin is warm, dry and intact. There are no obvious scars or previous incisions.. Alignment is neutral. ROM shows extension is 0, flexion 125. The knee is stable to varus/valgus stress (<6 degrees) and is not correctable. Additional findings include , no effusion, no erythema, and no tenderness. Anterior, posterior drawer negative. +PF/DF/EHL. SILT distally. DP/PT palpable. Straight leg raise negative for inciting radicular symptoms. LEFT KNEE: Inspection shows skin is warm, dry and intact. There are no obvious scars or previous incisions.. Alignment is significant varus. ROM shows extension is 0, flexion 120. The knee is stable to varus/valgus stress (<6 degrees) and is correctable. Additional findings include medial joint line tenderness, no effusion and no erythema. Anterior, posterior drawer negative. +PF/DF/EHL. SILT distally. DP/PT palpable. Straight leg raise negative for inciting radicular symptoms. Bilateral hip range of motion is not painful. Lab Results: RELEVANT LABS: NONE Radiology Findings: 04/08/23 images obtained by outside radiology department independently reviewed by myself today in office. XRAYS: Indication: Left knee pain. Exam Ordered: Radiographs of the knee include a standing anteroposterior view, a standing posteroanterior view, a lateral view in flexion, and a sunrise view. Details of Examination: Exam shows evidence of significant joint space narrowing (bone on bone) particularly in the medial compartment, significant peripheral osteophyte formation, and subchondral sclerosis; all consistent with end-stage degenerative arthritis of the knee. No other significant findings are noted. Impression: Degenerative Arthritis, left knee. Assessment 1. Primary osteoarthritis of left knee Plan The above findings were discussed with patient length. We discussed the options of conservative versus possible surgical management of their knee. At this point considering the patient's level of activity, pain, and radiographic findings, I recommended continued conservative management. This treatment will consist of... ~ Activity modification ~ NSAID's (OTC preferred) - The risks and benefits of NSAID medications were discussed. NSAID's can have potential renal/cardiac/gastric side effects. ~ Tylenol ~ Physical therapy (home exercise program provided) ~ Submitting to insurance for gel injection. ~ Patient does not want surgery due to [place] she would like to continue. ~ Left knee brace, patient has OTC brace already The risks, benefits, and alternatives to all of the treatment options were thoroughly explained. Patient will call us with any questions or concerns regarding this plan or if any significant issues arise. Follow-up PRN. Electronically signed by Heriberto Kaba M.D. 08/19/2023 at 9:44 AM. documented in this encounter [facility] note Diagnosis Left knee pain, unspecified chronicity- Primary documented in this encounter [facility]* Diagnosis Primary osteoarthritis of left knee documented in this encounter [facility]* Diagnosis Left knee pain, unspecified chronicity documented in this encounter [facility]* Diagnosis Arthritis of left knee documented in this encounter [facility]* Diagnosis Acute pain of left knee- Primary Primary osteoarthritis of left knee Arthritis of left knee documented in this encounter [facility]* Diagnosis Primary osteoarthritis of left knee- Primary documented in this encounter [facility]* Diagnosis Left knee pain, unspecified chronicity- Primary [facility] noteNo assessment information availableWLancaster [facility] Hospital Work Phone: Instructions* Attachments The following attachments cannot be sent through Care Everywhere. * Active Range of Motion Exercises, Knees and Ankles (Turkmen) documented in this [facility] for referral (narrative)No reason for referral information availableWLancaster Municipal Hospital Work Phone: Reason for Referral Specialty Diagnoses / Procedures Referred By Erum london Referred To Contact Diagnoses Arthritis of left knee Heriberto Kaba MD [address] [facility] [address] [place] [address] Referral ID Status Reason Start Date Expiration Date V isits Requested Visits Authorized [id number] Pending Review 08/26/2023 08/20/2024 1 1 Specialty Diagnoses / Procedures Referred By Contac t Referred To Contact Diagnoses Left knee pain, unspecified chronicity Procedures XR KNEE LEFT 4+ VIEWS Saad Fuentes MD [address] [place] [id number] Referral ID Status Reason Start Date Expiration Date V isits Requested Visits Authorized [id number] Pending Review 02/18/2024 03/14/2025 1 1 Specialty Diagnoses / Procedures Referred By Contac t Referred To Contact Diagnoses Left knee pain, unspecified chronicity Procedures XR BONE LENGTH STUDY Saad Fuentes MD [address] [place] [phone] Referral ID Status Reason Start Date Expiration Date V isits Requested Visits Authorized [id number] Pending Review 02/18/2024 03/14/2025 1 1 Summary Purpose Family History Family Member Condition Other Family Member Patient is adopted Advance Directives Advance Directive Response Recorded Date/ Time Do you have a Healthcare Power of Fire Patroller? No December 06, 2024 11:28pm Chief Complaint and Reason for Visit Chief Complaint Admit Date Knee pain December 06, 2024 10:37 pm Additional Source Comments Reason for Visit (unrecogniz ed section and content) left knee pain, New - 1st vi sit with practice Reason Comments New Patient L knee pain Reason Comments Follow-up Fu: Left knee synvis c one injection. Specialty Diagnoses / Procedures Referred By Contac t Referred To Contact Diagnoses Arthritis of left knee Heriberto Kaba MD [address] [facility] [address] [place] [phone] Referral ID Status Reason Start Date Expiration Date V isits Requested Visits Authorized [id number] Pending Review 08/26/2023 08/20/2024 1 1 Reason Comments Follow-up Gel injection reacti on LV: 08/19/23 Reason Onset Date Comments Advice Only 08/28/2023 Reason Comments Follow-up Left knee pain Reason Onset Date Comments medication 08/31/2023 Reason Onset Date Comments records form 12/17/2023 Specialty Diagnoses / Procedures Referred By Contac t Referred To Contact Diagnoses Left knee pain, unspecified chronicity Procedures XR BONE LENGTH STUDY Saad Fuentes MD [address] [place] [id number] Referral ID Status Reason Start Date Expiration Date V isits Requested Visits Authorized [id number] Pending Review 02/18/2024 03/14/2025 1 1 Reason Comments Pain INFORMATION SOURCE (unrecogn ized section and content) DATE CREATED AUTHOR 02/03/2024 [employer] [facility] DATE CREATED AUTHOR AUTHOR'S ORGANIZ ATION 03/05/2024 [facility] DATE CREATED AUTHOR AUTHOR'S ORGANIZ ATION 12/13/2024 [facility] Care Teams (unrecognized sec tion and content) Team Status: Active Member Role Status Dates Out of Town Doctor Primary Care Provider Active Team Status: Inactive Member Role Status Dates Out of Town Doctor Primary Care Provider Active Start: December 06, 2024 End: December 07, 2024 Dr. Gabe Chamorro , DO Emergency Provider Active Start: December 06, 2024 End: December 07, 2024 Goals (unrecognized section and content) Goals may be documented in a n alternate section No Information Available FOR RECORDS PERTAINING TO PATIENTS WHO ARE OR HAVE BEEN ENROLLED IN A CHEMICAL DEPENDENCY/SUBSTANCEABUSE PROGRAM, SOME INFORMATION MAY BE OMITTED. This clinical summary was aggregated from multiple sources. Caution should be exercised in using it in the provision of clinical care. This summary normalizes information from multiple sources, and as a consequence, information in this document may materially change the coding, format and clinical context of patient data. In addition, data may be omitted in some cases. CLINICAL DECISIONS SHOULD BE BASED ON THE PRIMARY CLINICAL RECORDS. [facility]. provides no warranty or guarantee of the accuracy or completeness of information in this document.
[2025-06-09 17:50] LABS: Hematocrit 40.9 % (37-47); Hemoglobin 13.1 g/dL (12.0-15.0); Immature Granulocytes Count 0.020 X10^3/uL (0.0-0.0); Mean Corp Hgb Conc 32.0 g/dL (32-36); Mean Corpuscular Volume 90.9 fL (81-99); Mean Platelet Vol. 11.8 fl (6.2-12.0); NRBC Flagged by Analyzer 0 % (0-5); Platelet Count 266 K/mm3 (150-450); RBC Distribution Width CV 14.0 % (11.6-14.6); RBC Distribution Width SD 46.8 fl (35.1-43.9); Red Blood Count 4.50 M/mm3 (4.2-5.4); White Blood Count 7.3 K/mm3 (4.4-11.0)
[2025-06-09 18:03] LABS: AST(SGOT) 25 U/L (<=31); Alanine Aminotransfer ALT/SGPT 31 U/L (<=34); Albumin, Serum 4.5 g/dL (3.4-4.8); Alkaline Phosphatase 102 U/L (35-104); Anion Gap 10 (5-15); BUN 21 mg/dL (4-19); BUN/Creat Ratio 25.1 RATIO (10-20); Calcium,Total 11.5 mg/dL (7.6-11.0); Carbon Dioxide 25.6 mmol/L (21.0-32.0); Chloride 105 mmol/L (98-108); Cholesterol 208 mg/dL (<=200); Globulin 3.4 g/dL (2.2-4.2); Glucose 91 mg/dL (70-99); Low Density Lipoprotein Calc. 135 mg/dL; Potassium 4.8 mmol/L (3.3-5.1); Triglycerides 148 mg/dL; Very Low Density Lipoprotein 30 mg/dL (5-40); cholesterol:hdl ratio screen 4.49
== END | disposition home or self-care (01) ==
LOC: BFHLAB 14:28
PROVIDERS: PCP Nurse Practitioner Family; Visit Provider Nurse Practitioner Family
DX: I10 Essential (primary) hypertension (principal); E78.5 Hyperlipidemia, unspecified
CPT/HCPCS: 36415; 80053; 80061; 85025